=== PATIENT | female | born 1960 | race Caucasian/White ===

== ENCOUNTER → 2017-08-24 | Outpatient (CLI) | payer MEDICAID | LOC: FIMAGING 11:33 | PROVIDERS: ATTEND Internal Medicine Hematology & Oncology | DX: Z12.31 Encounter for screening mammogram for malignant neoplasm of breast (principal); Z85.3 Personal history of malignant neoplasm of breast; Z80.3 Family history of malignant neoplasm of breast ==

== ENCOUNTER 2018-04-07 08:53 | Inpatient (IN) | payer MEDICAID ==
--- NOTE | 2018-04-06 10:21 | GHP ---
[f rep st] PREOP HISTORY AND PHYSICAL ADMISSION DIAGNOSIS: Left renal mass. This is a 57-year-old lady who has presented on referral from Dr. Robbins and Dr. Kirkland for a left renal mass on CAT scan, and she has had examinations by multiple people, and she has a 2 cm lower pole exo phytic lesion. She has a strong family history of renal cell carcinoma and requested it be removed. She is aware of her options of therapy and elected to undergo this. Indication, complications, and risks outlined well and tried to answer all of her questions. PAST HISTORY: She has had hypercholesterolemia, renal cyst, renal mass on the left, and hematuria. PAST SURGERY: Appendectomy, breast surgery, carpal tunnel, knee and shoulder. MEDICATIONS: Supplements, levothyroxine. ALLERGIES: Augmentin and Cipro. FAMILY HISTORY: Heart disease, colon cancer, and brother with renal cancer. SOCIAL HISTORY: Current every day alcohol use. Unemployed. Nonsmoker. REVIEW OF SYSTEMS: Negative cardiac, respiratory, GI, and endocrine. PHYSICAL EXAMINATION: VITAL SIGNS: Stable. CHEST: Clear. HEART: Regular rate and rhythm. ABDOME N: Normal. No organomegaly, rebound, or guarding. EXTREMITIES: Lower extremities are normal. I have reviewed her CAT scan with her in detail, and at the present time, she is to undergo the left lower pole partial nephrectomy. Complications of bleeding, infection, and need for removal of the en tire kidney have been discussed. Written and verbal consent was obtained. She is admitted as [facility] ed. /[id number]/MODL
--- NOTE | 2018-04-07 07:30 | PDHPUP ---
History & Physical Update H&P update statement: This history and physical update is based on an assessment of the patient which was completed after admission or registration (within 24 hours), but prior to the surgery/procedure. H&P update: H&P reviewed & patient examined, no change in patient's condition since H&P completed
[2018-04-07] MEDS ORDERED: PROPOFOL/EMULSION 500 MG/50 ML BOTTLE IV ONE ×3 (09:06→12:58)
[2018-04-07] MEDS ORDERED: fentaNYL 250 MCG/5 ML INJ ONE (09:10)
[2018-04-07] MEDS ORDERED: ceFAZolin 2 GM/DEXTROSE 100 ML IV ONE (09:11)
[2018-04-07] MEDS ORDERED: LR 1,000 ML IV ONE (09:23)
[2018-04-07] MEDS ORDERED: MIDAZOLAM 2 MG/2 ML VIAL IVP ONE (09:46)
[2018-04-07] MEDS ORDERED: ALBUTEROL 3 ML DEYVIAL IH ONE (09:47)
--- NOTE | 2018-04-07 09:51 | PDANEPAE ---
ANE History of Present Illness 57 year old female for Left partial nephrectomy. History of asthma. ANE Past Medical History - Cardiovascular History Hx Hypertension: No Hx Arrhythmias: No Hx Chest Pain: No Hx Coronary Artery / Peripheral Vascular Disease: No Hx CHF / Valvular Disease: No Hx Palpitations: No Cardiovascular History Comment: HEART RACES WITH ANXIETY ATTACKS - Pulmonary History Hx COPD: No Hx Asthma/Reactive Airway Disease: Yes Hx Recent Upper Respiratory Infection: No Hx Oxygen in Use at Home: No Hx Sleep Apnea: No Sleep Apnea Screening Result - Last Documented: Positive Pulmonary History Comment: ASTHMA W/CHRONIC COUGH - TRIGGERED BY ANXIETY. INHALERS - NOT USED SINCE WINTER. POS RUSTY TRIGGERS - Neurologic History Hx Cerebrovascular Accident: No Hx Seizures: No Hx Dementia: No Neurologic History Comment: OCCAS H/As FROM HIGH ALTITUDE AND LACK OF SLEEP - Endocrine History Endocrine History Comment: HYPOACTIVE THYROID - Renal History Hx Renal Disorders: Yes Renal History Comment: L KIDNEY MASS - Liver History Hx Hepatic Disorders: No - Neurological & Psychiatric Hx Hx Neurological and Psychiatric Disorders: Yes Neurological / Psychiatric History Comment: ANXIETY - Cancer History Hx Cancer: No Cancer History Comment: BREAST CA - Congenital Disorder History Hx Congenital Disorders: No - GI History Hx Gastrointestinal Disorders: Yes Gastrointestinal History Comment: ACID REFLUX. R ABD PAIN - Other Health History Other Health History: SKIN RASH W/YELLOWING SKIN & BLISTERING - NO DX - WORSE IN WINTER - USES UREA CREAM - Chronic Pain History Chronic Pain: Yes (NEAR R HIP BONE) - Surgical History Prior Surgeries: ENDOSCOPY. CARPAL TUNNEL RAUL. LUMPECTOMY R. SHOULDER SCOPES RAUL. RAUL KNEES REPAIR. APPENDECTOMY ANE Review of Systems Review of systems is: negative Review of Systems: - Exercise capacity METS (RN): 4 METS ANE Patient History - Allergies Allergies/Adverse Reactions: wheat Allergy (Intermediate, Verified 09/08/12 13:27) BLOATING adhesive Allergy (Verified 03/30/18 15:19) RASH, HIVES ciprofloxacin Allergy (Verified 09/08/12 13:27) Rash COWS MILK Allergy (Intermediate, Uncoded 09/08/12 13:27) BLOATING GARLIC Allergy (Intermediate, Uncoded 09/08/12 13:27) STOMACH PAIN ONIONS Allergy (Intermediate, Uncoded 09/08/12 13:27) BURPS MOLDS Allergy (Mild, Uncoded 09/08/12 13:27) COUGH - Home Medications Home Medications: traZODone [traZODONE 50MG (*)] 75 mg PO HS 06/11/11 [Last Taken 04/07/18 01:30] Levothyroxine [Synthroid 75 mcg (*)] 75 mcg PO DAILY06 03/29/18 [Last Taken 08:00] fluvoxaMINE MALEATE [Luvox 100 MG (*)] 100 mg PO DAILY 03/29/18 [Last Taken 07:30] Albuterol Hfa Anes Only 03/30/18 [Last Taken 09/22/17] Herbals/Supplements -Info Only 03/30/18 [Last Taken 04/05/18] - NPO status NPO Since - Liquids (Date): 04/07/18 NPO Since - Liquids (Time): 01:00 NPO Since - Solids (Date): 04/06/18 NPO Since - Solids (Time): 00:00 - Smoking Hx Smoking Status: Never smoked - Family Anes Hx Family Hx Anesthesia Complications: NEG ANE Labs/Vital Signs - Vital Signs Blood Pressure: 106/72 Heart Rate: 57 Respiratory Rate: 18 O2 Sat (%): 97 Height: 160.02 cm Weight: 54.431 kg ANE Physical Exam - Airway Neck exam: decreased ROM Mallampati Score: Class 2 Mouth exam: normal dental/mouth exam - Pulmonary Pulmonary: expiratory wheeze - Cardiovascular Cardiovascular: regular rate and rhythym - ASA Status ASA Status: II ANE Anesthesia Plan Anesthesia Plan: general endotracheal anesthesia (R upper temp crown. Treating with albuterol neb now for tx of exp wheezes.)
[2018-04-07] MEDS ORDERED: MANNITOL 20% 100 GM/500 ML BAG IV ONE (09:52)
[2018-04-07] MEDS ORDERED: BUPIVACAINE 0.5% 30 ML SDV ONE (09:52)
[2018-04-07] MEDS ORDERED: THROMBIN (BOVINE) 5,000 UNIT VIAL TP ONE (09:52)
[2018-04-07] MEDS ORDERED: THROMBIN(HUM PLAS)/FIBRINOG/CA 5 ML VIAL TP ONE (11:15)
[2018-04-07] MEDS ORDERED: LABETALOL HCL 5 MG/ML 20 ML MDV IVP PRN (11:19)
[2018-04-07] MEDS ORDERED: ALBUTEROL 3 ML DEYVIAL IH PRN (11:19)
[2018-04-07] MEDS ORDERED: NALOXONE HCL 0.4 MG/ML INJ IVP PRN ×2 (11:19→14:59)
[2018-04-07] MEDS ORDERED: LR 500 ML IV PRN (11:19)
[2018-04-07] MEDS ORDERED: PROMETHAZINE HCL 25 MG/ML INJ IVP PRN (11:25)
[2018-04-07] MEDS ORDERED: ONDANSETRON 4 MG/2 ML VIAL IVP PRN ×2 (11:25→14:59)
[2018-04-07] MEDS ORDERED: DEXAMETHASONE 4 MG/ML VIAL IVP PRN (11:25)
[2018-04-07] MEDS ORDERED: HYDROmorphONE/DILAUDID 2 MG/ML INJ ONE ×2 (11:28→15:17)
[2018-04-07] MEDS ORDERED: ROCURONIUM 50 MG/5 ML VIAL ONE ×2 (12:40→12:41)
[2018-04-07] MEDS ORDERED: DEXAMETHASONE 4 MG/ML VIAL ONE ×2 (12:40→12:41)
[2018-04-07] MEDS ORDERED: ONDANSETRON 4 MG/2 ML VIAL ONE (12:40)
[2018-04-07] MEDS ORDERED: ROCURONIUM 100 MG/10 ML VIAL ONE (12:41)
[2018-04-07] MEDS ORDERED: LABETALOL HCL 5 MG/ML 20 ML MDV ONE (12:41)
[2018-04-07] MEDS ORDERED: SURGIFLO MATRIX KIT WITH THROMBIN 8 ML TP ONE ×2 (13:30→13:53)
[2018-04-07] MEDS ORDERED: HYDROmorphONE/DILAUDID 6 MG/30 ML PCA IV PRN (14:59)
[2018-04-07] MEDS ORDERED: ONDANSETRON DISINTEGRATING 4 MG TAB PO PRN (14:59)
[2018-04-07] MEDS ORDERED: ZOLPIDEM TARTRATE 5 MG TAB PO PRN (14:59)
--- NOTE | 2018-04-07 14:59 | POSTOPPROG ---
Post Op Note Date of Operation: 04/07/18 (dictated) Surgeon: Louie Brian Mission Worker: Aditya Anesthesiologist: Samantha Anesthesia: GET(General Endotracheal) Pre-op Diagnosis: left renal mass Procedure: RA left partial neph Inf/Abcess present in the surg proc area at time of surgery?: No EBL: 500-1000 Complications: none Drains: Alejandro Rios, Other (cummins) Specimen(s): sent
[2018-04-07] MEDS ORDERED: ALBUTEROL 60 PUFFS/8 GM MDI IH PRN (15:11)
[2018-04-07] MEDS ORDERED: fentaNYL 100 MCG/2 ML INJ ONE ×2 (15:17→15:48)
[2018-04-07] MEDS: HYDROmorphONE/DILAUDID 1 MG/ML INJ IVP PRN ×3 (15:21→15:53)
[2018-04-07] MEDS: fentaNYL 100 MCG/2 ML INJ IVP PRN ×3 (15:21→16:00)
[2018-04-07 15:43] LABS: PLATELET COUNT 187 10^3/uL (150-400)
--- NOTE | 2018-04-07 15:54 | GOP ---
[f rep st] OPERATIVE REPORT DATE OF OPERATION: 04/07/2018 SURGEON: Louie Brian MD SPRAY GUN REPAIRER: Aditya. ANESTHESIA: General. Dr. Singh PREOPERATIVE DIAGNOSIS: Left solid renal mass, enhancing. POSTOPERATIVE DIAGNOSIS: Left solid renal mass, enhancing. PROCEDURE PERFORMED: Left partial nephrectomy, robotically assisted. FINDINGS: SPECIMENS: Sent to pathology. DESCRIPTION OF PROCEDURE: After undergoing general anesthesia and answering all of her questions preoperatively, she was prepped and draped in normal sterile fashion after being marked and appropriately identified on the left side. Then, at that point, she was prepped and draped and then had Ioban placed over the abdominal wall, and then an infraumbilical approach was made for the Veress needle which was placed and insufflated the abdomen to 15 mmHg pressure. Then, at that point, a 12-Congolese camera port was placed at the umbilicus and two 8 mm robot arm ports were placed in the midclavicular line on the left side and then the medical library assistant port was placed infraumbilically in the midline for a 12 mm port. Initially placing the lowest medical library assistant port, there was a hemorrhage coming from the muscle and so we removed the port and identified a small muscular artery that was bleeding and that was cauterized and then the port was re-placed and insufflation revealed no intestinal staining inside the abdomen. The spleen came way down past the lower pole of the kidney. At that point, the colon was mobilized on the left side. We had instrumentation difficulty with the bipolar on multiple attempts to changing the device, the cord, and the instrument would not work, so then we utilized PK forceps that worked intermittently, but felt that they were functioning and was providing hemostasis with dissection, so identified the ureter and dissected that up to the lower pole of the kidney. She had a large gonadal vein that was dilated and was restricting the exposure of the renal hilum and at that point, I re-hemo locked the renal vein branch which was gonadal, 2 on the renal vein side, and 1 on the gonadal side and was transected. Ironically scissors for some reason were not cutting. New scissors were placed and the dissection was continued and I could identify the renal vein had 2 branches, 1 going posterior , 1 anterior, tried to initially dissected these out, see if I could find the renal artery, which actually bifurcated proximal to the bifurcation of the renal vein and the gonadal vessels. So dissection was carried out to mobilize the entire kidney and had to take down the splenorenal ligament and colorenal ligaments down so I could actually get the spleen and the colon totally out of the way so I could visualize the operative site. At that point, I could identify the mass in the kidney. She had minimal fat around the kidney through that dissection, so the ureter was preserved and the kidney was totally mobilized. We had mannitol given IV and then was able to try to clamp the artery and vein separately, but with the anatomy that she had, it was not possible, so I placed 2 large vascular clamps robotically along the hilum and the renal vein and renal artery. She had 1 renal artery going to the upper pole of left kidney and that was clamped with a curved clamp. The kidney had no apparent blood flow. It had a dark appearance and a congested appearance. At that point, I had previously marked the outline where the tumor would be resected and had ultrasound guidance showed that it was 2.1 x 1.8 cm. Then I excised the lesions and she had some venous bleeding. No arterial bleeding identified. Originally, I asked for a 4-0 Monocryl to close the inner part of the vessels and collecting system, but there was a delay on suture based on needle size so that had to be redone, in the interim of that, the kidney had some venous bleeding that I could eventually use a 4-0 Monocryl and closed the inside of the kidney with a running stitch and had a Hem-o-karely and laprotie mobilized at the tail and then as I brought it through and then brought out through the capsule and then stabilized in a similar way. At that point, I used 0 Vicryl to do a serpentine closure and interrupted and using pledget Hem-o -karely to compress the nephrotomy. I did 2 layers of that. Of interest, as I was closing, I did open 1 renal vein and was able to tamponade that quite well. So, bleeding was minimal at the end of the closure. Used FloSeal and Surgicel over the nephrotomy closure and then took off the clamps sequentially and there was no bleeding. The kidney pinked up and had good turgor on palpation with the robot arm. Placed a BERYL drain retrorenal. I did a nephropexy with 0 Vicryl and then the ureter was intact. There was no bleeding at the hilum. I did place FloSeal around the hilum with some Evicel. The specimen was placed in a bag, and then at that point, decreased the pressure to zero in the abdomen and there was no bleeding. We undocked the robot after opening the camera port, removed the specimen in a specimen bag. We closed that with a suture closure device, 0 Vicryl, and then she had some old blood that was coming out of the drain, so we placed two 8 mm ports in and revisualized intra-abdominally. During the bleeding, she had some dependent blood going into the right pericolic area and that was all sucked out and there was no active bleeding there. There was no staining in the abdomen. Revisualized the renal hilum and nephrotomy site and there was no active bleeding there. There was a small amount of blood above the right lobe of the liver that was aspirated. At the end of the procedure with no pressure felt, there was no active bleeding and there was no pulling. Then the medical library assistant port was closed with an 0 Vicryl. Subcutaneous tissue was hemostatic and closed the skin with 4-0 Monocryl and Marcaine was used for closing the skin edges. Vital signs stable per Anesthesia and there were no anesthetic problems. At the end of the procedure, she has minimal drainage coming from the BERYL site and should be transferred to the recovery room. I will discuss with her findings and pathology sent. At the end of the procedure, grossly there was no suggestion of tumor at the base of the lesion and it felt like the lesion had normal-appearing tissue. We did not cut across any tumor site at the at the renal dissection. /[id number]/MODL MTDD
--- NOTE | 2018-04-07 16:05 | POSTANESTH ---
Post Anesthetic Evaluation Cardiovascular Status: Normal, Stable Respiratory Status: Normal, Stable Level of Consciousness/Mental Status: Mildly Sleepy, Arousable Pain Control: Adequate, Prn Tx Ordered Nausea/Vomiting Control: Adequate, Prn Tx Ordered Complications Possibly Related to Anesthesia: None Noted
[2018-04-07] MEDS: D5W 1/2 NS W/ 20 KCl/L 1,000 ML IV SCH (18:23)
[2018-04-07] MEDS: traZODone 50 MG TAB PO SCH (20:01)
[2018-04-07] MEDS: oxyCODONE IR 5 MG TAB PO PRN (20:01)
--- NOTE | 2018-04-07 21:53 | PDHOSCONS ---
History and Physical - Chief Complaint blood loss - History of Present Illness 57yo F with history of asthma, depression, hypothyroidism who underwent L partial nephrectomy for mass seen on CT by Dr Brian of urology. Procedure complicated by bleeding. Operative report indicates likely nicked renal vein. BERYL drain was left in place. Medicine was consulted for management of medical problems and to assess bleeding. On my interview with the patient, she is having mild left sided abdominal/flank pain near incision site but denies nausea or vomiting. She also endorses chronic RLQ abdominal pain that has not acutely worsened. History Information - Allergies/Home Medication List Allergies/Adverse Reactions: wheat Allergy (Intermediate, Verified 09/08/12 13:27) BLOATING adhesive Allergy (Verified 03/30/18 15:19) RASH, HIVES ciprofloxacin Allergy (Verified 09/08/12 13:27) Rash COWS MILK Allergy (Intermediate, Uncoded 09/08/12 13:27) BLOATING GARLIC Allergy (Intermediate, Uncoded 09/08/12 13:27) STOMACH PAIN ONIONS Allergy (Intermediate, Uncoded 09/08/12 13:27) BURPS MOLDS Allergy (Mild, Uncoded 09/08/12 13:27) COUGH Home Medications: traZODone [traZODONE 50MG (*)] 75 mg PO HS 06/11/11 [Last Taken 04/07/18 01:30] Levothyroxine [Synthroid 75 mcg (*)] 75 mcg PO DAILY06 03/29/18 [Last Taken 08:00] fluvoxaMINE MALEATE [Luvox 100 MG (*)] 100 mg PO DAILY 03/29/18 [Last Taken 07:30] Albuterol [Proventil Inhaler HFA (*)] 1 - 2 puffs IH DAILY PRN 03/30/18 [Last Taken Unknown] Herbals/Supplements -Info Only 1 ea PO DAILY 03/30/18 [Last Taken 04/05/18] Multivitamins [Multivitamin (*)] 1 each PO DAILY 04/07/18 [Last Taken Unknown] Col[place]idge-3 Fatty Acids [Fish Oil 1000 mg (*)] 1,000 mg PO DAILY 04/07/18 [Last Taken Unknown] I have personally reviewed and updated: family history, medical history, social history, surgical history - Past Medical History Additional medical history: hypothyroidism, asthma, depression, L renal mass - Surgical History Additional surgical history: appendectomy, breast surgery, carpal tunnel release , knee and shoulder surgeries - Family History Additional family history: brother - renal cancer, other family members with heart disease and colon cancer - Social History Smoking Status: Never smoked Alcohol Use: Occasionally Drug Use: None Additional social history: lives with Review of Systems Review of Systems: ROS: 10pt was reviewed & negative except for what was stated in HPI & below Physical Exam Physical Exam: Temp Pulse Resp BP Pulse Ox 36.4 C 67 16 99/56 L 100 04/07/18 20:00 04/07/18 20:00 04/07/18 20:00 04/07/18 20:00 04/07/18 20:00 O2 (L/minute) 2 Constitutional: no apparent distress, appears nourished, not in pain Eyes: PERRL, anicteric sclera, EOMI Ears, Nose, Mouth, Throat: moist mucous membranes, hearing normal, ears appear normal, no oral mucosal ulcers Cardiovascular: regular rate and rhythym, no murmur, rub, or gallop, No edema Respiratory: no respiratory distress, no rales or rhonchi, clear to auscultation Gastrointestinal: soft, non-tender abdomen, no palpable masses, other (BERYL drain with bloody fluid), No guarding, No rebound, No distension Skin: warm, normal color, no rashes or abrasions, no fluctuance, no induration, No mottled Neurologic: AAOx3, sensation intact bilaterally, CN II-XII Intact Psychiatric: interacting appropriately, not anxious, not encephalopathic, thought process linear Lab Data & Imaging Review 04/07/18 20:00 WBC 10.85 10^3/uL (3.80-9.50) H 04/07/18 15:35 RBC 3.30 10^6/uL (4.18-5.33) L 04/07/18 15:35 Hgb 10.4 g/dL (12.6-16.3) L 04/07/18 20:00 Hct 29.7 % (38.0-47.0) L 04/07/18 20:00 MCV 98.2 fL (81.5-99.8) 04/07/18 15:35 MCH 33.6 pg (27.9-34.1) 04/07/18 15:35 MCHC 34.3 g/dL (32.4-36.7) 04/07/18 15:35 RDW 11.7 % (11.5-15.2) 04/07/18 15:35 Plt Count 187 10^3/uL (150-400) 04/07/18 15:35 MPV 8.6 fL (8.7-11.7) L 04/07/18 15:35 Neut % (Auto) 93.4 % (39.3-74.2) H 04/07/18 15:35 Lymph % (Auto) 4.3 % (15.0-45.0) L 04/07/18 15:35 [place] % (Auto) 1.5 % (4.5-13.0) L 04/07/18 15:35 Eos % (Auto) 0.0 % (0.6-7.6) L 04/07/18 15:35 Baso % (Auto) 0.2 % (0.3-1.7) L 04/07/18 15:35 Nucleat RBC Rel Count 0.0 % (0.0-0.2) 04/07/18 15:35 Absolute Neuts (auto) 10.13 10^3/uL (1.70-6.50) H 04/07/18 15:35 Absolute Lymphs (auto) 0.47 10^3/uL (1.00-3.00) L 04/07/18 15:35 Absolute Monos (auto) 0.16 10^3/uL (0.30-0.80) L 04/07/18 15:35 Absolute Eos (auto) 0.00 10^3/uL (0.03-0.40) L 04/07/18 15:35 Absolute Basos (auto) 0.02 10^3/uL (0.02-0.10) 04/07/18 15:35 Absolute Nucleated RBC 0.00 10^3/uL (0-0.01) 04/07/18 15:35 Immature Gran % 0.6 % (0.0-1.1) 04/07/18 15:35 Immature Gran # 0.07 10^3/uL (0.00-0.10) 04/07/18 15:35 RBC/WBC/PLT Morphology TNP 04/07/18 15:35 Platelet Estimate TNP 04/07/18 15:35 Patient ABO/Rh A POSITIVE 04/07/18 17:35 Antibody Screen NEGATIVE 04/07/18 17:35 Crossmatch IS Only See Detail 04/07/18 17:35 Assessment & Plan Assessment: 57yo F with history of asthma, depression, hypothyroidism who underwent L partial nephrectomy for mass seen on CT by Dr Brian of urology. Procedure complicated by bleeding. Operative report indicates likely nicked renal vein. BERYL drain was left in place. Medicine was consulted for management of medical problems. Plan: #Acute blood loss anemia: Hgb 14->11. Operative note indicates nicked renal vein which is likely culprit. BERYL drain in place. - At least daily CBC - Type and crossed for 2 units PRBCs - Monitor hemodynamics, abdominal exam. If worsening, would re-scan abdomen - Dr Brian was going to discuss with general surgery #Asthma: Controlled, no acute flare. Continue home albuterol. #Hypothyroidism: Continue home synthroid. #s/p left partial nephrectomy: POD#0 - Pain control per urology #Depression, anxiety: Continue home fluvoxemine. Thank you for this consult. We will continue to follow along with you.
[2018-04-08] MEDS: D5W 1/2 NS W/ 20 KCl/L 1,000 ML IV SCH (02:02)
[2018-04-08] MEDS: oxyCODONE IR 5 MG TAB PO PRN (02:25)
[2018-04-08 02:37] LABS: PLATELET COUNT 171 10^3/uL (150-400)
[2018-04-08] MEDS ORDERED: LEVOTHYROXINE 75 MCG TAB PO SCH (06:00)
[2018-04-08] MEDS: LEVOTHYROXINE 75 MCG TAB PO SCH (08:59)
--- NOTE | 2018-04-08 09:54 | SOAPPROG ---
SOAP Progress Note Assessment/Plan: Assessment: Postoperative anemia due to acute blood loss Acute BERYL less, pain minimal, vss, continue care, may tx later today if hct lower, appreciate hospitalist input and assistance in care. discussed if need reop then nephrectomy would be done and in light of pt stability cont present care plan Renal mass, left Acute Stable, BMP ok other than glucose elevation yet creat is normal. Path pending Plan: continue care, check H and H and if drops more consider tx blood 04/08/18 09:54 Objective: Vital Signs Temp Pulse Resp BP Pulse Ox 37.7 C 74 21 H 97/47 L 100 04/08/18 07:57 04/08/18 07:57 04/08/18 07:57 04/08/18 07:57 04/08/18 07:57 Laboratory Results 04/08/18 06:15 04/08/18 02:00 04/07/18 04/08/18 04/09/18 05:59 05:59 05:59 Intake Total 5146 Output Total 2945 35 Balance 2201 -35 Physical Exam - Physical Exam General Appearance: alert Neck: supple Respiratory: normal breath sounds, No respiratory distress Cardiac/Chest: regular rate, rhythm Abdomen: non-tender, soft Back: No CVA tenderness Neuro/Psych: alert, oriented x 3 ICD10 Worksheet Patient Problems: Problems Problem Status Onset Postoperative anemia due to acute blood loss Acute Renal mass, left Acute - ICD10 Problem Qualifiers (1) Postoperative anemia due to acute blood loss
--- NOTE | 2018-04-08 14:08 | ASMTCMCOM ---
CM Note CM Note Notes: Pt with history of hypothyroidism, asthma and depression admitted for partial nephrectomy of mass, complicated by internal bleeding. Pt may receive blood transfusion or return to surgery which would then result in nephrostomy possibly requiring home health RN. Pt lives at home with . Therapies are not ordered. CM needs still TBD. D/C plan: TBD Date Signed: 04/08/2018 02:07 PM Electronically Signed By:Erica Pardo
--- NOTE | 2018-04-08 14:20 | PDMN ---
Medical Necessity Medical necessity: Pt meets IP per MD; est los >2 mn for eval/tx of acute blood loss anemia s/p L partial nephrectomy POD #0; requiring further SDU monitoring, IVFs, blood transfusion, follow-up labs & Hospitalist consult; per progress note & order 04/07/18
[2018-04-08] MEDS: ACETAMINOPHEN 325 MG TAB PO PRN (15:37)
--- NOTE | 2018-04-08 16:38 | HOSPPROG ---
Hospitalist Progress Note Assessment/Plan: Subjective Follow-up on acute blood loss anemia. Patient states she is having pain around her surgical site the current ARMHOLE SEWER pump has been helpful with control. She denies any subjective fevers or chills. No complaints of productive cough. No complaints of lightheadedness. Objective Vital signs as detailed below Exam General-patient is awake alert conversant she appears comfortable no acute distress she is able to provide good amount of history Heart-regular no murmurs noted Lungs-clear auscultation anteriorly with normal respiratory effort Abdomen-nondistended tender with palpation at the left upper quadrant and without significant tenderness of the right abdomen surgical sites appear to be healing appropriately -[place] catheter in place with clear yellow urine Skin no concerning skin rashes noted Labs as detailed below Assessment plan Acute blood loss anemia-this appears to be stabilizing with her hemoglobin going from 8.9 yesterday 0.3 today. This was 11 previously. Left renal mass-patient is status post partial left nephrectomy. Fever-patient has had elevated temperatures throughout the day today. No definite new symptoms to localize an infectious source. Possibly secondary to atelectasis in light of her surgery. I will further evaluate with blood cultures urinalysis and chest x-ray. Will start ceftriaxone for now. Fleet pending results in further investigation. [id number] albuterol. Hypothyroidism-levothyroxine 75 mcg daily. Depression-continue fluvoxamine 100 mg daily. DVT prophylaxis-compression devices. Disposition-I would anticipate patient would be stable for discharge home once medically stable. We may want to involve PT and OT when cleared from bedrest. Objective: Vital Signs Temp Pulse Resp BP Pulse Ox 37.9 C 73 13 93/52 L 97 04/08/18 15:41 04/08/18 15:41 04/08/18 15:41 04/08/18 15:41 04/08/18 15:41 Laboratory Results 04/08/18 02:00 04/07/18 04/08/18 04/09/18 05:59 05:59 05:59 Intake Total 0086 Output Total 2945 120 Balance 2201 -120 ICD10 Worksheet Patient Problems: Problems Problem Status Onset Postoperative anemia due to acute blood loss Acute Renal mass, left Acute
[2018-04-08] MEDS: NS 1,000 ML IV SCH (17:26)
[2018-04-08] MEDS: traZODone 50 MG TAB PO SCH (22:41)
[2018-04-09] MEDS: NS 1,000 ML IV SCH (00:05)
[2018-04-09 04:52] LABS: PLATELET COUNT 123 10^3/uL (150-400)
--- NOTE | 2018-04-09 05:55 | GCON ---
[f rep st] CONSULTATION DATE OF CONSULTATION: 04/08/2018 REASON FOR CONSULTATION: Intensive care unit evaluation and medical management following partial kid jerod resection. HISTORY: The patient is a very pleasant 58-year-old who underwent partial left nephrectomy yesterday for a mass. Postoperatively, the patient had some bleeding and increased drainage. Dr. Brian felt this was coming from a renal vein, not arterial. She was transferred to the intensive care unit for closer followup. She has had some left-sided flank pain as expected, nothing excessive. She is othe rwise doing well. PAST MEDICAL HISTORY: Remarkable for hypothyroidism, depression, and asthma. HOME MEDICATIONS: Included only albuterol, Luvox, trazodone, and Synthroid along with vitamins and s upplements. DRUG ALLERGIES: Multiple. These include ciprofloxacin, adhesive tapes, and various food issues. SOCIAL HISTORY: The patient was born in [facility]. Tobacco is negative. Significant alcohol is negati ve. 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 FAMILY HISTORY: Noncontributory. REVIEW OF SYSTEMS: A 10-point review of systems is negative except as mentioned above. PHYSICAL EXAMINATION: GENERAL: Reveals a pleasant woman, who is in no distress. VITAL SIGNS: Bloo d pressure is approximately 95/50, heart rate 73 with sinus rhythm on the monitor. Respiratory rate is 14. On room air saturations are in the upper 90s. She is afebrile. HEENT: Unremarkable for lym phadenopathy or thyromegaly. CHEST: Clear. There are no wheezes. HEART: Regular in rate and rhyt hm. There are no gallops or significant murmurs. ABDOMEN: Quiet postoperatively. Palpation was no t attempted. A Toledo catheter is in place. There is good urine output. A Alejandro-Rios drain is in place with decreasing bloody output. EXTREMITIES: Unremarkable for edema or cords. NEUROLOGIC: E xamination is intact. DATABASE: Hematocrit is 24.7, down from 32 earlier today. Baseline hematocrit preoperatively was 41 . White blood cell count is 7600. Platelets are 171,000. Chemistries are within normal limits with the exception of a glucose of 170. Calcium is 7.9. Urinalysis today showed some blood but was othe rwise negative. ASSESSMENT: 1. Acute blood loss anemia. Currently, hematocrit is stable at approximately 25. Serial hemoglobin and hematocrit are being followed. Bleeding is slowing down. Hopefully she will not need to return to the operating room for further intervention as nephrectomy possibly would be needed. 2. History of asthma. There is no evidence of bronchospasm currently. She has p.r.n. albuterol if needed. 3. History of other medical problems as outlined above. Outpatient medications are being continued. PLAN AND RECOMMENDATIONS: The patient will be kept in the intensive care unit on step-down status. H and H/CBC will be followed. Further plans and recommendations will be made based on her progress over the next 12-24 hours. /[id number]/MODL
[2018-04-09] MEDS: LEVOTHYROXINE 75 MCG TAB PO SCH (08:45)
--- NOTE | 2018-04-09 09:52 | SOAPPROG ---
SOAP Progress Note Assessment/Plan: Assessment: Postoperative anemia due to acute blood loss Acute POD $ 2 BERYL less , pain minimal, vss, continue care, may tx later today if hct lower, appreciate hospitalist input and assistance in care. discussed if need reop then nephrectomy would be done and in light of pt stability cont present care plan. Discussed with Dr. Robbins and pt admits to large ETOH consumption, portal HTN may have some contributing factor for bleeding. Post op abdominal spasms and robaxan planned. Renal mass, left Acute Stable, BMP ok other than glucose elevation yet creat is normal. Path pending Plan: continue care,Lower H and H consider tx blood 04/09/18 10:21 Subjective: ok, pain discussed, discussed recommendation for transfusion and she prefers to wait, will assess after the 2PM H and H, I have encouraged her to have tx Objective: Vital Signs Temp Pulse Resp BP Pulse Ox 37.3 C 70 15 94/51 L 99 04/09/18 07:45 04/09/18 07:45 04/09/18 07:45 04/09/18 07:45 04/09/18 07:45 Laboratory Results 04/09/18 04:45 04/09/18 04:45 04/08/18 04/09/18 04/10/18 05:59 05:59 05:59 Intake Total 6899 6639 Output Total 3895 324 25 Balance 2201 -107 -25 ICD10 Worksheet Patient Problems: Problems Problem Status Onset Postoperative anemia due to acute blood loss Acute Renal mass, left Acute - ICD10 Problem Qualifiers (1) Postoperative anemia due to acute blood loss
--- NOTE | 2018-04-09 09:52 | PDINTPN ---
Truss Driver Helper Progress Note Assessment/Plan: Assessment: Status post left partial nephrectomy. Acute blood-loss anemia. Hematocrit drifting down: 22.5 this morning. Will transfuse 1 unit. History of mild asthma, anxiety, depression. Stable Metabolic: No issues identified. Prophylaxis: SCDs, no GI. Will add the latter while npo. Plan: 1 unit of packed red blood cells today. Follow H&H. Continue DENTAL CHAIRSIDE ASSISTANT for pain control. Advance diet per Urology. Continue bed rest for now. Subjective: Complains of postoperative flank pain and spasm. On DENTAL CHAIRSIDE ASSISTANT. No shortness of breath. Objective: Vital Signs Temp Pulse Resp BP Pulse Ox 37.3 C 70 15 94/51 L 99 04/09/18 07:45 04/09/18 07:45 04/09/18 07:45 04/09/18 07:45 04/09/18 07:45 Laboratory Results 04/09/18 04:45 04/09/18 04:45 04/08/18 04/09/18 04/10/18 05:59 05:59 05:59 Intake Total 5146 3133 Output Total 2945 3240 25 Balance 2201 -107 -25 Laboratory Tests 04/09/18 04:45 Calcium 7.4 L Total Bilirubin 0.3 AST 35 ALT 34 Albumin 2.3 L CXR: Clear Physical Exam - Physical Exam General Appearance: alert, no apparent distress EENT: other (On room air) Neck: normal inspection (No JVD) Respiratory: lungs clear, normal breath sounds Cardiac/Chest: regular rate, rhythm, No gallop Abdomen: soft, other (BERYL in place. Decreased output overnight: 25 mL), No normal bowel sounds (Decreased, few present), No non-tender (Postoperative tenderness on the L) Pelvic Exam: other (Toledo catheter in place, good urine output) Skin: warm/dry, pallor Extremities: pedal edema Neuro/Psych: no motor/sensory deficits, No cognition abnormalities ICD10 Worksheet Patient Problems: Problems Problem Status Onset Postoperative anemia due to acute blood loss Acute Renal mass, left Acute
[2018-04-09] MEDS: PANTOPRAZOLE SODIUM 40 MG VIAL IVP SCH (11:59)
[2018-04-09] MEDS: METHOCARBAMOL 1,000 MG in NS 50 ML IV SCH ×2 (14:18→21:49)
--- NOTE | 2018-04-09 16:53 | HOSPPROG ---
Hospitalist Progress Note Assessment/Plan: Subjective Follow-up on acute blood loss anemia. No acute events overnight. She does subjectively feel warm today. We reviewed that she was having fevers we have not found any obvious source of infection. Possibly related to intra-abdominal hematoma. No lightheadedness complaints. Objective Vitals as detailed below Exam General-awake alert conversant no acute distress Heart-regular rate and rhythm no murmurs Lungs-Clear to auscultation with normal respiratory effort Abdomen-nondistended BERYL drain in place on the left with blood in bowl drain overlying gauze is blood-soaked as well - Toledo catheter in place Extremities-no significant pitting edema or calf pain with palpation Skin-no concerning skin rashes noted Labs as detailed below Assessment plan Acute blood loss anemia-her hemoglobin did drop today to 7.7 but a repeat has come up slightly to 8.1. I think we can continue to follow for now and recheck again tomorrow morning. The the patient's preference would be to not have a blood transfusion unless absolutely necessary. Left renal mass-patient is status post partial left nephrectomy. Fever-patient has had elevated temperatures throughout the day today. No definite new symptoms to localize an infectious source. Possibly secondary to atelectasis in light of her surgery. Possibly related to intra-abdominal hematoma. Chest x-ray and urinalysis unremarkable. Blood cultures pending. Continue with ceftriaxone for now but likely could stop if blood cultures negative. Gqyrni-ue-cvjvld albuterol. Hypothyroidism-levothyroxine 75 mcg daily. Depression-continue fluvoxamine 100 mg daily. DVT prophylaxis-compression devices. Disposition-I would anticipate patient would be stable for discharge home once medically stable. We may want to involve PT and OT when cleared from bedrest. Objective: Vital Signs Temp Pulse Resp BP Pulse Ox 37.3 C 70 16 108/55 L 93 04/09/18 16:00 04/09/18 07:45 04/09/18 16:00 04/09/18 16:00 04/09/18 16:00 Laboratory Results 04/09/18 14:20 04/09/18 04:45 04/08/18 04/09/18 04/10/18 05:59 05:59 05:59 Intake Total 5146 3133 Output Total 0985 3240 65 Balance 2201 -107 -65 ICD10 Worksheet Patient Problems: Problems Problem Status Onset Postoperative anemia due to acute blood loss Acute Renal mass, left Acute
[2018-04-09] MEDS: ACETAMINOPHEN 325 MG TAB PO PRN (19:28)
[2018-04-09] MEDS: oxyCODONE IR 5 MG TAB PO PRN (19:40)
[2018-04-09] MEDS: traZODone 50 MG TAB PO SCH (21:46)
[2018-04-10] MEDS: oxyCODONE IR 5 MG TAB PO PRN ×3 (00:13→21:16)
[2018-04-10 05:36] LABS: PLATELET COUNT 128 10^3/uL (150-400)
[2018-04-10] MEDS: METHOCARBAMOL 1,000 MG in NS 50 ML IV SCH ×3 (06:35→21:17)
[2018-04-10] MEDS: PANTOPRAZOLE SODIUM 40 MG VIAL IVP SCH (07:53)
[2018-04-10] MEDS: LEVOTHYROXINE 75 MCG TAB PO SCH (07:53)
[2018-04-10] MEDS ORDERED: MAGNESIUM CITRATE 300 ML BOTTLE PO PRN (09:15)
[2018-04-10] MEDS: POLYETHYLENE GLYCOL 3350 17 GM PKT PO SCH (09:30)
--- NOTE | 2018-04-10 10:36 | SOAPPROG ---
SOAP Progress Note Assessment/Plan: Assessment: Postoperative anemia due to acute blood loss Acute POD # 3 BERYL less , pain minimal, vss, continue care, Discussed with Dr. Robbins and pt admits to large ETOH consumption, portal HTN may have some contributing factor for bleeding. Post op abdominal spasms and robaxan has helped spasms. BERYL drainage for creat and continue care, advance diet, advance activity Renal mass, left Acute Stable, BMP ok, creat is normal. Path pending Plan: continue care,Lower H and H consider tx blood yet stable and good UO 04/10/18 11:50 Subjective: better, passing flatus, Robaxan helped spasms, pain fairly well controlled Objective: Vital Signs Temp Pulse Resp BP Pulse Ox 37.1 C 73 14 102/52 L 95 04/10/18 07:39 04/10/18 07:39 04/10/18 07:39 04/10/18 07:39 04/10/18 07:39 Laboratory Results 04/10/18 05:27 04/10/18 05:27 04/09/18 04/10/18 04/11/18 05:59 05:59 05:59 Intake Total 3133 1907 Output Total 3240 2014 200 Balance -107 -108 -465 Physical Exam - Physical Exam General Appearance: alert Neck: supple Respiratory: No respiratory distress Cardiac/Chest: regular rate, rhythm Abdomen: soft, other (drain discussed) Back: No CVA tenderness Skin: warm/dry Extremities: No calf tenderness, No Tammy's sign Neuro/Psych: alert, oriented x 3 ICD10 Worksheet Patient Problems: Problems Problem Status Onset Postoperative anemia due to acute blood loss Acute Renal mass, left Acute - ICD10 Problem Qualifiers (1) Postoperative anemia due to acute blood loss
[2018-04-10] MEDS: ACETAMINOPHEN 325 MG TAB PO PRN (13:00)
--- NOTE | 2018-04-10 16:45 | HOSPPROG ---
Hospitalist Progress Note Assessment/Plan: Subjective Follow-up on acute blood loss anemia. No acute events overnight. She is not complaining of feeling warm today as yesterday. We did discuss that her hemoglobin level has leveled off. Blood transfusion was consider yesterday however patient was declining a transfusion of blood. Stable pain complaints. No lightheadedness or shortness of breath. Objective Vitals as detailed below Exam General-awake alert conversant no acute distress Heart-regular rate and rhythm no murmurs Lungs-Clear to auscultation with normal respiratory effort Abdomen-nondistended BERYL drain in place with the smaller amount of thin bloody discharge overlying gauze is not as much blood soaked as yesterday -no Toledo catheter in place Extremities-no significant pitting edema or calf pain with palpation Skin-no concerning skin rashes noted Labs as detailed below Assessment plan Acute blood loss anemia-her hemoglobin seems to be leveling off and clinically with less blood in her BERYL drain. Continue to follow and recheck again tomorrow morning. Left renal mass-stat patient is status post partial left nephrectomy. Fever-the seemed to have abated. No obvious source identified. Possibly secondary to atelectasis or hematoma. Await final blood culture results. Will continue with the ceftriaxone for now but likely could stop if no recurrent fevers and ongoing clinical stability. Constipation-continue bowel regimen. Tewqwp-tq-pnonlz albuterol. Hypothyroidism-levothyroxine 75 mcg daily. Depression-continue fluvoxamine 100 mg daily. DVT prophylaxis-compression devices. Disposition-I would anticipate patient would be stable for discharge home once medically stable. We may want to involve PT and OT when cleared from bedrest. Objective: Vital Signs Temp Pulse Resp BP Pulse Ox 36.6 C 65 16 97/55 L 91 L 04/10/18 15:43 04/10/18 15:43 04/10/18 15:43 04/10/18 15:43 04/10/18 15:43 Laboratory Results 04/10/18 05:27 04/10/18 05:27 04/09/18 04/10/18 04/11/18 05:59 05:59 05:59 Intake Total 1499 8503 Output Total 0161 2014 Balance -107 -108 -303 ICD10 Worksheet Patient Problems: Problems Problem Status Onset Postoperative anemia due to acute blood loss Acute Renal mass, left Acute
[2018-04-10] MEDS: SENNOSIDES 1 TAB PO SCH (21:03)
[2018-04-10] MEDS: traZODone 50 MG TAB PO SCH (21:03)
[2018-04-11] MEDS: oxyCODONE IR 5 MG TAB PO PRN ×2 (03:35→21:40)
[2018-04-11] MEDS: ACETAMINOPHEN 325 MG TAB PO PRN (05:00)
[2018-04-11] MEDS: METHOCARBAMOL 1,000 MG in NS 50 ML IV SCH (06:00)
[2018-04-11] MEDS: LEVOTHYROXINE 75 MCG TAB PO SCH (09:34)
[2018-04-11] MEDS: PANTOPRAZOLE SODIUM 40 MG VIAL IVP SCH (09:34)
[2018-04-11] MEDS: POLYETHYLENE GLYCOL 3350 17 GM PKT PO SCH (09:44)
--- NOTE | 2018-04-11 11:22 | ASMTCMCOM ---
CM Note CM Note Notes: Reviewed chart notes. Pt impoving and IV ABX may be DC'd. CM will continue to follow for DC needs. Date Signed: 04/11/2018 11:21 AM Electronically Signed By:Jessica Campoverde LCSW
--- NOTE | 2018-04-11 12:47 | SOAPPROG ---
SOAP Progress Note Assessment/Plan: Assessment: Postoperative anemia due to acute blood loss Acute POD # 4 BERYL less and serum, will have removed (BERYL drainage for creat 0.8) and continue care , advance diet, advance activity Renal mass, left Acute Stable, BMP ok, creat is normal. Path pending Plan: continue care,Lower H and H consider tx blood yet stable and good UO 04/11/18 12:45 Subjective: better, passing gas, abdominal pain noted Objective: Vital Signs Temp Pulse Resp BP Pulse Ox 36.6 C 67 17 105/66 91 L 04/11/18 09:03 04/11/18 09:03 04/11/18 09:03 04/11/18 09:03 04/11/18 09:03 Laboratory Results 04/10/18 05:27 04/10/18 05:27 04/10/18 04/11/18 04/12/18 05:59 05:59 05:59 Intake Total 7 850 Output Total 2014 775 Balance -108 75 Physical Exam - Physical Exam General Appearance: alert Neck: supple Respiratory: No respiratory distress Cardiac/Chest: regular rate, rhythm Abdomen: soft Back: No CVA tenderness Skin: warm/dry Extremities: No calf tenderness, No Tammy's sign Neuro/Psych: alert, oriented x 3 ICD10 Worksheet Patient Problems: Problems Problem Status Onset Postoperative anemia due to acute blood loss Acute Renal mass, left Acute - ICD10 Problem Qualifiers (1) Postoperative anemia due to acute blood loss
[2018-04-11] MEDS ORDERED: SENNOSIDES/DOCUSATE SODIUM TAB PO PRN (12:48)
--- NOTE | 2018-04-11 14:02 | ASMTCMCOM ---
CM Note CM Note Notes: Met with patient and partner regarding discharge plan of care. We discussed the possibility of HHC upon discharge, patient and feel this is a good idea. It is unclear at this time if patient will d/c home with BERYL drain, also still receiving IV abx. Patient requested that CM move forward with home care referral and has chosen [facility] (RN/PT). Spoke with [place] at [facility] re: referral, hopefully has enough staff this week and plans on accepting at this time. Uncertain when patient will d/c at this time. CM will continue to follow and monitor IV abx needs. Plan: Home with [facility] (RN/PT) Date Signed: 04/11/2018 02:02 PM Electronically Signed By:Harriett Rankin RN
[2018-04-11] MEDS ORDERED: BISACODYL 10 MG SUPP PR PRN (14:21)
[2018-04-11] MEDS: FERROUS SULFATE 300 MG/5 ML UD CUP PO SCH (14:30)
[2018-04-11] MEDS: METHOCARBAMOL 750 MG TAB PO SCH ×2 (15:44→21:38)
--- NOTE | 2018-04-11 17:13 | HOSPPROG ---
Hospitalist Progress Note Assessment/Plan: Subjective Follow-up on acute blood loss anemia and constipation and left renal mass. No acute events overnight. No subjective fevers or chills. She states that she still has not had a bowel movement since coming into the hospital. But does knowledge she has not eaten a whole lot either. No complaints of shortness of breath or lightheadedness. Transfusion was considered few days ago but patient was declining transfusion of blood. I think if he was felt to be strongly recommended she would likely agreed to have a transfusion done but the current time we are following. Objective Vitals as detailed below Exam General-awake alert conversant no acute distress Heart-regular rate and rhythm no murmurs Lungs-Clear to auscultation with normal respiratory effort Abdomen-nondistended BERYL drain in place with the smaller amount of thin bloody discharge -no Toledo catheter in place Extremities-no significant pitting edema or calf pain with palpation Skin-no concerning skin rashes noted Labs as detailed below Assessment plan Acute blood loss anemia-her hemoglobin seems to be leveling off and clinically with less blood in her BERYL drain. Continue to follow and recheck again tomorrow morning. She is on iron supplementation. Left renal mass-patient is status post partial left nephrectomy. Pathology currently pending. Fever-the seemed to have abated. No obvious source identified. Possibly secondary to atelectasis or hematoma. Await final blood culture results. Urinalysis as well did not suggest infectious process. Chest x-ray was clear. I will hold ceftriaxone for now and monitor closely for any recurrent fevers. Constipation-continue bowel regimen. I added Dulcolax today. Magnesium citrate is ordered for as needed use as well. She is on scheduled MiraLax and Senokot. Wrqrvn-ha-wnopuj albuterol. Hypothyroidism-levothyroxine 75 mcg daily. Depression-continue fluvoxamine 100 mg daily. DVT prophylaxis-compression devices. Disposition-I would anticipate patient would be stable for discharge home once medically stable. We may want to involve PT and OT when cleared from bedrest. Objective: Vital Signs Temp Pulse Resp BP Pulse Ox 36.5 C 64 16 107/65 94 04/11/18 15:03 04/11/18 15:03 04/11/18 15:03 04/11/18 15:03 04/11/18 15:03 Laboratory Results 04/10/18 05:27 04/10/18 05:27 04/10/18 04/11/18 04/12/18 05:59 05:59 05:59 Intake Total 5013 202 4931 Output Total 2014 772 40 Balance -784 97 6150 ICD10 Worksheet Patient Problems: Problems Problem Status Onset Postoperative anemia due to acute blood loss Acute Renal mass, left Acute
[2018-04-11] MEDS: SENNOSIDES 1 TAB PO SCH (21:37)
[2018-04-11] MEDS: traZODone 50 MG TAB PO SCH (21:37)
[2018-04-12 04:48] LABS: PLATELET COUNT 166 10^3/uL (150-400)
[2018-04-12 09:13] VITALS: BP 103/64
[2018-04-12] MEDS: ACETAMINOPHEN 325 MG TAB PO PRN (09:25)
[2018-04-12] MEDS: LEVOTHYROXINE 75 MCG TAB PO SCH (09:26)
[2018-04-12] MEDS: METHOCARBAMOL 750 MG TAB PO SCH (09:26)
[2018-04-12] MEDS: FERROUS SULFATE 300 MG/5 ML UD CUP PO SCH (09:26)
[2018-04-12] MEDS: POLYETHYLENE GLYCOL 3350 17 GM PKT PO SCH (10:42)
[2018-04-12] MEDS ORDERED: DIPHENHYDRAMINE CREAM TP PRN (11:19)
--- NOTE | 2018-04-12 13:23 | HOSPPROG ---
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 path + for clear cell CA- Dr Alejandro to share w patient Objective: Vital Signs Temp Pulse Resp BP Pulse Ox 36.6 C 69 18 103/64 92 04/12/18 09:08 04/12/18 09:08 04/12/18 09:08 04/12/18 09:08 04/12/18 09:08 Laboratory Results 04/12/18 04:34 04/12/18 04:34 04/11/18 04/12/18 04/13/18 05:59 05:59 05:59 Intake Total 850 1460 Output Total 775 40 Balance 75 1420 - Physical Exam Constitutional: no apparent distress, appears nourished Eyes: PERRL, anicteric sclera Ears, Nose, Mouth, Throat: moist mucous membranes, hearing normal Cardiovascular: regular rate and rhythym, no murmur, rub, or gallop Respiratory: no respiratory distress, no rales or rhonchi Gastrointestinal: normoactive bowel sounds, soft, non-tender abdomen Genitourinary: no bladder fullness, No cummins in urethra Skin: warm, normal color Musculoskeletal: full muscle strength, no muscle tenderness Neurologic: AAOx3 ICD10 Worksheet Patient Problems: Problems Problem Status Onset Postoperative anemia due to acute blood loss Acute Renal mass, left Acute
--- NOTE | 2018-04-12 15:11 | ASMTLACE ---
ELICEO Length of stay for Answers: 4-6 days current admission Acuity / Level of Answers: Yes Care: Did the patient have an inpatient admission? Comorbidities - select Answers: Opioid dependence all that apply / Chronic pain Other Notes: Hypoactive thyroid; Billy al mass # of Emergency department Answers: 0 visits in the last 6 months Social determinants Answers: Mental health diagnosis (anxiety, depression, pers onality disorders, etc.) Score: 15 Date Signed: 04/12/2018 03:10 PM Electronically Signed By:Fide Davis
--- NOTE | 2018-04-12 15:15 | ASMTDCNOTE ---
Case Management Discharge Discharge Order Complete? Answers: Yes Patient to Obtain Answers: via Family Medications Transportation Arranged Answers: Family/Friends Faxed Final Orders Answers: Yes Agency/Facility Transfer Answers: Yes Report Printed & Faxed to Receiving Agency Family Notified Answers: Yes Discharge Comments Notes: Pt being D/Hemal home with [facility] nursing. HC notified. Pt is concerned that she won't be able to go up and down the stairs independently at home. There is a guest room on the first floor that she can use. Date Signed: 04/12/2018 03:14 PM Electronically Signed By:Fide Davis
--- NOTE | 2018-04-12 17:25 | SOAPPROG ---
SOAP Progress Note Assessment/Plan: Assessment: Postoperative anemia due to acute blood loss Acute POD # 5 BERYL out , advance diet, advance activity Renal mass, left Acute Stable, BMP ok, creat is normal. Path T1a Clear Cell Cancer Kidney Plan: DC home 04/12/18 17:23 Subjective: doing well Objective: Vital Signs Temp Pulse Resp BP Pulse Ox 36.6 C 69 18 103/64 92 04/12/18 09:08 04/12/18 09:08 04/12/18 09:08 04/12/18 09:08 04/12/18 09:08 Laboratory Results 04/12/18 04:34 04/12/18 04:34 04/11/18 04/12/18 04/13/18 05:59 05:59 05:59 Intake Total 850 1460 Output Total 775 40 Balance 75 1420 Physical Exam - Physical Exam General Appearance: alert Neck: supple Respiratory: No respiratory distress Cardiac/Chest: regular rate, rhythm Abdomen: soft Skin: warm/dry Extremities: No calf tenderness Neuro/Psych: alert, oriented x 3 ICD10 Worksheet Patient Problems: Problems Problem Status Onset Postoperative anemia due to acute blood loss Acute Renal mass, left Acute - ICD10 Problem Qualifiers (1) Postoperative anemia due to acute blood loss
--- NOTE | 2018-04-12 18:40 | PDIAF ---
- Diagnosis Diagnosis: renal mass Code Status: Full Code - Medication Management Discharge Medications: Medications to Continue on Transfer Levothyroxine [Synthroid 75 mcg (*)] 75 mcg PO DAILY06 03/29/18 [Last Taken 08:00] fluvoxaMINE MALEATE [Luvox 100 MG (*)] 100 mg PO DAILY 03/29/18 [Last Taken 07:30] Albuterol [Proventil Inhaler HFA (*)] 1 - 2 puffs IH DAILY PRN 03/30/18 [Last Taken Unknown] Herbals/Supplements -Info Only 1 ea PO DAILY 03/30/18 [Last Taken 04/05/18] Multivitamins [Multivitamin (*)] 1 each PO DAILY 04/07/18 [Last Taken Unknown] [place]-3 Fatty Acids [Fish Oil 1000 mg (*)] 1,000 mg PO DAILY 04/07/18 [Last Taken Unknown] diphenhydrAMINE [Benadryl Cream] 1 triston TP TID PRN 04/11/18 [Last Taken Unknown] Polyethylene Glycol 3350 [Miralax 17 gm (*)] 17 gm PO DAILY pkt 04/12/18 [Last Taken Unknown] Sennosides/Docusate Sodium [Senokot-S] 2 tab PO BID PRN tab 04/12/18 [Last Taken Unknown] oxyCODONE IR [Oxycodone Ir (*)] 5 mg PO Q6HRS PRN #15 tab 04/12/18 [Last Taken Unknown] traZODone [traZODONE 50MG (*)] 75 mg PO HS tab 04/12/18 [Last Taken Unknown] Discharge Medications: Refer to the Discharge Home Medication list for PRN reason. - Orders Services needed: Registered Nurse Diet Recommendation: no restrictions on diet Diet Texture: Regular Texture Diet Additional Instructions: No lifting greater than 20lbs until cleared by No hot tubs, swimming pools, or baths until cleared by Call office to set up follow up appointment for 1-2 weeks after discharge. Ok to shower. Wash incisions gently with soap and water, rinse well, pat dry. Do not touch you incisions with dirty hands or let anyone else touch them with dirty hands, keep clean clothes on, make sure bedding is clean. Do not allow animals to come into direct contact with incisions. Monitor for signs and symptoms of infection. Fever greater than 101F, pus draining from incisions, redness increasing. - Follow Up Care Current Providers and Referrals: Louie Brian MD [Medical Doctor] - (3 weeks) Kaylie Mesa MD [Primary Care Provider] -
== END 2018-04-12 17:56 | disposition home health service (06) | DRG 442 ==
LOC: INTOOBSV 08:53 → F3E 08:53 → F1N 14:19 → OBSVTOIN 17:48 → F2N 18:04 → F1N 04-10 12:22
PROVIDERS: ADMIT Specialist; ATTEND Specialist
PROC: 8E0W0CZ Robotic Assisted Procedure of Trunk Region, Open Approach (ICD-10-PCS; principal; 2018-04-07 10:15)
PROC: 0TB10ZX Excision of Left Kidney, Open Approach, Diagnostic (ICD-10-PCS; principal; 2018-04-07 10:15)
DX: C64.2 Malignant neoplasm of left kidney, except renal pelvis (principal); D62 Acute posthemorrhagic anemia; K59.00 Constipation, unspecified; F41.1 Generalized anxiety disorder; J45.909 Unspecified asthma, uncomplicated; G47.33 Obstructive sleep apnea (adult) (pediatric); E03.9 Hypothyroidism, unspecified; Z85.3 Personal history of malignant neoplasm of breast
CPT/HCPCS: 97116-GP; 97161-GP; 97530-GP; J0690; J0696; J1100; J1170; J1200; J2250; J2405; J2704; J2800; J3010; J7613

== ENCOUNTER 2018-04-20 14:48 | Emergency (ER) | payer MEDICAID ==
--- NOTE | 2018-04-20 15:18 | EDPHY ---
H & P Stated Complaint: fever, weakness Time Seen by Provider: 04/20/18 15:17 HPI/ROS: CHIEF COMPLAINT: Fever and weakness HISTORY OF PRESENT ILLNESS: The patient is referred to the emergency department by her urologist for evaluation of fever weakness. The patient is status post left nephrectomy on April 07. Her postoperative course was complicated by blood loss anemia. She did not require transfusion. The patient did develop some incisional redness and was started on Bactrim approximately 1 week ago. She reports that she has been experiencing low-grade fevers at home. She was evaluated by Dr. Brian and had a CT scan of the abdomen pelvis which demonstrated a likely hematoma. Dr. Brian did not feel as if this represented a complication from surgery. He felt he had nothing else to offer the patient according to his physician hotel assistant manager and refer the patient to the ED. REVIEW OF SYSTEMS: A comprehensive 10 point review of systems is otherwise negative aside from elements mentioned in the history of present illness. Source: Patient - Personal History Current Tetanus/Diphtheria Vaccine: Yes Current Tetanus Diphtheria and Acellular Pertussis (TDAP): Yes - Medical/Surgical History Hx Asthma: No Hx Chronic Respiratory Disease: No Hx Diabetes: No Hx Cardiac Disease: No Hx Renal Disease: No Hx Cirrhosis: No Hx Alcoholism: No Hx HIV/AIDS: No Hx Splenectomy or Spleen Trauma: No Other PMH: partial nephrectomy, hypothyroid, anxiety, lung nodules, - Social History Smoking Status: Never smoked - Physical Exam Exam: General Appearance: Alert, no distress Eyes: Pupils equal and round no pallor or injection ENT, Mouth: Mucous membranes moist Respiratory: There are no retractions, lungs are clear to auscultation Cardiovascular: Regular rate and rhythm Gastrointestinal: Abdomen is soft nontender, surgical incisions are clean dry and intact Neurological: 5/5 strength all 4 extremities Skin: Warm and dry, no rashes Musculoskeletal: Neck is supple nontender Extremities: symmetrical, full range of motion Constitutional: Initial Vital Signs Temperature (C) 37.6 C 04/20/18 14:57 Heart Rate 75 04/20/18 14:57 Respiratory Rate 16 04/20/18 14:57 Blood Pressure 92/49 L 04/20/18 14:57 O2 Sat (%) 99 04/20/18 14:57 O2 Delivery Mode Room Air Allergies/Adverse Reactions: wheat Allergy (Intermediate, Verified 04/20/18 14:54) BLOATING adhesive Allergy (Verified 04/20/18 14:54) RASH, HIVES ciprofloxacin Allergy (Verified 04/20/18 14:54) Rash COWS MILK Allergy (Intermediate, Uncoded 04/20/18 14:54) BLOATING GARLIC Allergy (Intermediate, Uncoded 04/20/18 14:54) STOMACH PAIN ONIONS Allergy (Intermediate, Uncoded 04/20/18 14:54) BURPS MOLDS Allergy (Mild, Uncoded 04/20/18 14:54) COUGH Augmentin Allergy (Unknown, Uncoded 04/20/18 14:54) Home Medications: Medication Instructions Recorded Levothyroxine [Synthroid 75 mcg 75 mcg PO DAILY06 03/29/18 (*)] fluvoxaMINE MALEATE [Luvox 100 MG 100 mg PO DAILY 03/29/18 (*)] Herbals/Supplements -Info Only 1 ea PO DAILY 03/30/18 Multivitamins [Multivitamin (*)] 1 each PO DAILY 04/07/18 [place]-3 Fatty Acids [Fish Oil 1000 1,000 mg PO DAILY 04/07/18 mg (*)] Sennosides/Docusate Sodium 2 tab PO BID PRN tab 04/12/18 [Senokot-S] oxyCODONE IR [Oxycodone Ir (*)] 5 mg PO Q6HRS PRN #15 tab 04/12/18 traZODone [traZODONE 50MG (*)] 75 mg PO HS tab 04/12/18 Bactrim DS 04/20/18 Medical Decision Making - Diagnostics Imaging Results: Imaging Impressions Abdomen/Pelvis CT 04/20/18 18:00 Impression: 1. 2 cm fluid collection superior to the left kidney containing punctate air, possibly representing a small hematoma or seroma, or less likely abscess. The air could be related to a prior drain, which has since been removed. 2. Multiple clips at the lateral margin of the left kidney compatible with recent partial nephrectomy. 4. Additional findings as above. Findings discussed with Louie Brian MD, 04/20/2018 at 14:22. Attention: This examination does not use radiographic contrast and provides only a limited evaluation of the abdomen, pelvis and retroperitoneum. If clinical concern warrants, CT with intravenous and enteric contrast could be performed. ED Course/Re-evaluation: The patient was referred to the emergency department for evaluation of general malaise and low-grade fevers. Patient is currently on Bactrim for a questionable mild incisional cellulitis. The patient is well-appearing in the emergency department. She has stable vital signs. Workup of her fever is unrevealing. There is no evidence of a significant urinary tract infection, pneumonia or clinical evidence of a significant postoperative infection. The results of the CT scan were reviewed by Dr. Brian who felt the findings were consistent with hematoma not abscess. At this point time the patient will be discharged home with instructions to follow up with Dr. Brian as scheduled. Differential Diagnosis: Differential diagnosis considered includes urinary tract infection, pneumonia, postoperative infection, ileus, intra-abdominal abscess, atelectasis, dehydration, worsening anemia - Data Points Laboratory Results: Laboratory Results 04/20/18 13:35 04/20/18 13:35 04/20/18 04/20/18 04/20/18 17:12 13:35 13:35 WBC 4.50 10^3/uL 10^3/uL (3.80-9.50) RBC 2.95 10^6/uL L 10^6/uL (4.18-5.33) Hgb 9.8 g/dL L g/dL (12.6-16.3) Hct 29.0 % L % (38.0-47.0) MCV 98.3 fL fL (81.5-99.8) MCH 33.2 pg pg (27.9-34.1) MCHC 33.8 g/dL g/dL (32.4-36.7) RDW 12.3 % % (11.5-15.2) Plt Count 434 10^3/uL H 10^3/uL (150-400) MPV 8.5 fL L fL (8.7-11.7) Neut % (Auto) 81.1 % H % (39.3-74.2) Lymph % (Auto) 3.8 % L % (15.0-45.0) [place] % (Auto) 7.6 % % (4.5-13.0) Eos % (Auto) 7.1 % % (0.6-7.6) Baso % (Auto) 0.0 % L % (0.3-1.7) Nucleat RBC Rel Count 0.0 % % (0.0-0.2) Absolute Neuts (auto) 3.65 10^3/uL 10^3/uL (1.70-6.50) Absolute Lymphs (auto) 0.17 10^3/uL L 10^3/uL (1.00-3.00) Absolute Monos (auto) 0.34 10^3/uL 10^3/uL (0.30-0.80) Absolute Eos (auto) 0.32 10^3/uL 10^3/uL (0.03-0.40) Absolute Basos (auto) 0.00 10^3/uL L 10^3/uL (0.02-0.10) Absolute Nucleated RBC 0.00 10^3/uL 10^3/uL (0-0.01) Immature Gran % 0.4 % % (0.0-1.1) Immature Gran # 0.02 10^3/uL 10^3/uL (0.00-0.10) RBC/WBC/PLT Morphology TNP Platelet Estimate TNP VBG Lactic Acid Sodium 136 mEq/L mEq/L (135-145) Potassium 4.4 mEq/L mEq/L (3.3-5.0) Chloride 101 mEq/L mEq/L (97-110) Carbon Dioxide 25 mEq/l mEq/l (22-31) Anion Gap 10 mEq/L mEq/L (8-16) BUN 24 mg/dL H mg/dL (7-23) Creatinine 1.1 mg/dL H mg/dL (0.6-1.0) Estimated GFR 51 Glucose 107 mg/dL H mg/dL (70-100) Calcium 8.9 mg/dL mg/dL (8.5-10.4) Urine Color YELLOW Urine Appearance CLEAR Urine pH 6.0 (5.0-7.5) Ur Specific [place] 1.021 (1.002-1.030) Urine Protein NEGATIVE (NEGATIVE) Urine Ketones NEGATIVE (NEGATIVE) Urine Blood NEGATIVE (NEGATIVE) Urine Nitrate NEGATIVE (NEGATIVE) Urine Bilirubin NEGATIVE (NEGATIVE) Urine Urobilinogen NEGATIVE EU EU (0.2-1.0) Ur Leukocyte Esterase NEGATIVE (NEGATIVE) Urine Glucose NEGATIVE (NEGATIVE) 04/20/18 13:35 WBC RBC Hgb Hct MCV MCH MCHC RDW Plt Count MPV Neut % (Auto) Lymph % (Auto) [place] % (Auto) Eos % (Auto) Baso % (Auto) Nucleat RBC Rel Count Absolute Neuts (auto) Absolute Lymphs (auto) Absolute Monos (auto) Absolute Eos (auto) Absolute Basos (auto) Absolute Nucleated RBC Immature Gran % Immature Gran # RBC/WBC/PLT Morphology Platelet Estimate VBG Lactic Acid 1.2 mmol/L mmol/L (0.7-2.1) Sodium Potassium Chloride Carbon Dioxide Anion Gap BUN Creatinine Estimated GFR Glucose Calcium Urine Color Urine Appearance Urine pH Ur Specific [place] Urine Protein Urine Ketones Urine Blood Urine Nitrate Urine Bilirubin Urine Urobilinogen Ur Leukocyte Esterase Urine Glucose Departure - Departure Disposition: Home, Routine, Self-Care Clinical Impression: Malaise Condition: Good Instructions: Fatigue (ED) Additional Instructions: 1. Please follow-up with your primary care provider for a recheck within the week. 2. Please follow up with Dr. Brian as scheduled. 3. Your workup in the emergency department demonstrates no significant abnormality, clinical evidence of infection or other worrisome finding. 4. Follow up with Dr. Robbins as scheduled on Wednesday Referrals: Kaylie Mesa MD [Primary Care Provider] - As per Instructions
[2018-04-20 15:50] LABS: PLATELET COUNT 434 10^3/uL (150-400)
[2018-04-20] MEDS ORDERED: ACETAMINOPHEN 325 MG TAB PO ONE (17:56)
[2018-04-20 18:16] VITALS: BP 98/51
== END 2018-04-20 18:16 | disposition home or self-care (01) ==
LOC: EDSTATUS 18:00
DX: R53.81 Other malaise (principal); R93.422 Abnormal radiologic findings on diagnostic imaging of left kidney; C64.9 Malignant neoplasm of unspecified kidney, except renal pelvis; Z90.5 Acquired absence of kidney; Z98.890 Other specified postprocedural states

== ENCOUNTER 2018-04-21 18:36 | Inpatient (IN) | payer MEDICAID ==
[2018-04-21] MEDS ORDERED: NS 1,000 ML IV ONE ×2 (19:26→21:06)
[2018-04-21] MEDS ORDERED: ACETAMINOPHEN 500 MG TAB ONE (20:11)
[2018-04-21] MEDS ORDERED: ACETAMINOPHEN 500 MG TAB PO ONE (20:12)
[2018-04-21 20:22] LABS: PLATELET COUNT 412 10^3/uL (150-400)
--- NOTE | 2018-04-21 20:22 | EDPHY ---
H & P Time Seen by Provider: 04/21/18 19:21 HPI/ROS: HPI Fever, nausea. 58-year-old female by private vehicle with her . This patient underwent a left-sided nephrectomy secondary to malignancy on April [address] Louie Brian. Surgery was complicated by blood loss and anemia. She did not require transfusion. Since shortly after the surgery she has had a low-grade temperature. This was thought to be secondary to a cellulitis around the area of her surgical incision left lower quadrant of her abdomen. She was placed on Bactrim for this. She presented to the emergency department yesterday complaining of fever. She had a CT scan of her abdomen and pelvis as part of her workup yesterday. This did show a small fluid collection adjacent to the left kidney. This was thought to be hematoma but may also represent an abscess. She was discharged home after an essentially unremarkable workup. Blood cultures are currently pending. She was to follow up with Dr. Brian. She returns to the emergency department with her today complaining of continued fever, fatigue and nausea. She has not been vomiting. ROS: Constitutional: No fever, no chills. As above. Eyes: No discharge. No changes in vision. ENT: No sore throat. No nasal congestion or rhinorrhea. Respiratory: No cough. No shortness of breath. Cardiac: No chest pain, no palpitations. Gastrointestinal: No abdominal pain, no vomiting, no diarrhea. As above Genitourinary: No hematuria. No dysuria or increased frequency with urination. Musculoskeletal: No back pain. No neck pain. No myalgias or arthralgias. Skin: No rashes. Neurological: No headache. No focal weakness or altered sensation. Past medical history: Partial nephrectomy, hypothyroid, anxiety, renal cancer, lung nodules. As above. Social history: Nonsmoker. No alcohol. Here with her . Physical Exam: General Appearance: Alert, no distress. This patient is responding to questions appropriately and in full sentences. This patient appears well- hydrated and well-nourished. Eyes: Pupils equal and round no pallor or injection. No lid edema, erythema or injection. ENT, Mouth: Mucous membranes are moist. The pharyngeal tissues are unremarkable. No edema or swelling. No asymmetry suggestive of abscess. No erythema or exudates. Respiratory: There are no retractions, lungs are clear to auscultation with good air movement bilaterally. Cardiovascular: Regular rate and rhythm. No murmur. Gastrointestinal: Abdomen is soft and nontender, she has an area of inflammation over the left lower quadrant surgical incision, this appears to be residual from her dressing being removed. It does not appear to be cellulitic. There is no crepitus or edema noted on palpation of this area. no masses, bowel sounds normal. No focal tenderness at McBurney's point. No Peters sign. Neurological: Motor sensory function is grossly intact. Cranial nerves are normal. Gait is normal. Skin: Warm and dry, no rashes. Musculoskeletal: Neck is supple and nontender. Extremities are symmetrical. All joints range without pain or impingement. Psychiatric: No agitation. No depression. Database: EKG: Imaging: Chest x-ray PA and lateral; the cardiac mediastinal silhouette is unremarkable. No evidence of infiltrate or pneumothorax. No acute cardiopulmonary disease process noted. Interpreted by me. Procedures: Emergency department course: Triage vital signs reviewed. She is febrile at 39.2. Blood pressure is 97/59. Vital signs otherwise normal. She was started on IV normal saline with 1-2 L to be given over the next hour. Chest x-ray to be obtained. Urine will be repeated as well as standard blood work. Medical records including CT scan report reviewed from yesterday. Concern is that 2 cm fluid collection superior to the left kidney is an abscess and not hematoma as initially thought. I discussed plan to admit the patient to our hospitalist service for further evaluation, consultation by Dr. Brian consultation by Infectious Disease. She and her are in agreement. 9:00 p.m., spoke with on-call hospitalist. Patient accepted for admission by Dr. Clifton. He will order a repeat CT scan of her abdomen and pelvis tomorrow to reassess fluid collection above left kidney. Hospitalist service will then involved Dr. Brian and Infectious Disease as needed for further management. Antibiotic administration discussed with Dr. Clifton will start the patient on 4.5 g of IV Zosyn in the emergency department. She will also be continued on IV normal saline at 100 cc/hour. 9:10 p.m., patient re-evaluated. Resting comfortably at this time. Plan for admission and above management discussed with her and her . All of their questions were answered. The patient was admitted in stable condition. Differential Diagnosis: The differential diagnosis on this patient includes but is not limited to postsurgical infection, intra-abdominal abscess, bacteremia, viral syndrome. This represents a partial list of diagnoses considered. These considerations are based on history, physical exam, past history, reassessment and diagnostic testing. Smoking Status: Never smoked Constitutional: Initial Vital Signs Temperature (C) 39.2 C H 04/21/18 18:39 Heart Rate 87 04/21/18 18:39 Respiratory Rate 18 04/21/18 18:39 Blood Pressure 97/59 L 04/21/18 18:39 O2 Sat (%) 97 04/21/18 18:39 O2 Delivery Mode Room Air Allergies/Adverse Reactions: wheat Allergy (Intermediate, Verified 04/21/18 18:42) BLOATING adhesive Allergy (Verified 04/21/18 18:42) RASH, HIVES ciprofloxacin Allergy (Verified 04/21/18 18:42) Rash COWS MILK Allergy (Intermediate, Uncoded 04/21/18 18:42) BLOATING GARLIC Allergy (Intermediate, Uncoded 04/21/18 18:42) STOMACH PAIN ONIONS Allergy (Intermediate, Uncoded 04/21/18 18:42) BURPS MOLDS Allergy (Mild, Uncoded 04/21/18 18:42) COUGH Augmentin Allergy (Unknown, Uncoded 04/21/18 18:42) Home Medications: Medication Instructions Recorded Levothyroxine [Synthroid 75 mcg 75 mcg PO DAILY06 03/29/18 (*)] fluvoxaMINE MALEATE [Luvox 100 MG 100 mg PO DAILY 03/29/18 (*)] Herbals/Supplements -Info Only 1 ea PO DAILY 03/30/18 Multivitamins [Multivitamin (*)] 1 each PO DAILY 04/07/18 [place]-3 Fatty Acids [Fish Oil 1000 1,000 mg PO DAILY 04/07/18 mg (*)] Sennosides/Docusate Sodium 2 tab PO BID PRN tab 04/12/18 [Senokot-S] oxyCODONE IR [Oxycodone Ir (*)] 5 mg PO Q6HRS PRN #15 tab 04/12/18 traZODone [traZODONE 50MG (*)] 75 mg PO HS tab 04/12/18 Bactrim DS 04/20/18 Medical Decision Making - Diagnostics Imaging Results: Imaging Impressions Chest X-Ray 04/21/18 19:31 Impression: No acute findings in the chest. - Data Points Laboratory Results: Laboratory Results 04/21/18 20:07 04/21/18 20:07 04/21/18 04/21/18 04/21/18 20:07 20:07 20:07 WBC 2.42 10^3/uL L 10^3/uL (3.80-9.50) RBC 3.01 10^6/uL L 10^6/uL (4.18-5.33) Hgb 10.0 g/dL L g/dL (12.6-16.3) Hct 29.0 % L % (38.0-47.0) MCV 96.3 fL fL (81.5-99.8) MCH 33.2 pg pg (27.9-34.1) MCHC 34.5 g/dL g/dL (32.4-36.7) RDW 12.3 % % (11.5-15.2) Plt Count 412 10^3/uL H 10^3/uL (150-400) MPV 8.6 fL L fL (8.7-11.7) Neut % (Auto) Not Reported Lymph % (Auto) Not Reported [place] % (Auto) Not Reported Eos % (Auto) Not Reported Baso % (Auto) Not Reported Nucleat RBC Rel Count Not Reported Absolute Neuts (auto) Not Reported Absolute Lymphs (auto) Not Reported Absolute Monos (auto) Not Reported Absolute Eos (auto) Not Reported Absolute Basos (auto) Not Reported Absolute Nucleated RBC Not Reported Immature Gran % Not Reported Seg Neutrophils % 83.0 % % Band Neutrophils % 0.0 % % Lymphocytes % 7.0 % % Monocytes % 1.0 % % Eosinophils % 8.0 % % Basophils % 1.0 % % Metamyelocytes % 0.0 % % Myelocytes % 0.0 % % Promyelocytes % 0.0 % % Blast Cells % 0.0 % % Immature Gran # Not Reported Absolute Seg Neuts 2.01 10^/uL 10^/uL (1.70-6.50) Absolute Band Neuts 0.00 10^3/uL 10^3/uL (0.00-0.70) Absolute Lymphocytes 0.17 10^3/uL L 10^3/uL (1.00-3.00) Absolute Monocytes 0.02 10^3/uL L 10^3/uL (0.30-0.80) Absolute Eosinophils 0.19 10^3/uL 10^3/uL (0.03-0.40) Absolute Basophils 0.02 10^3/uL 10^3/uL (0.02-0.10) Absolute Metamyelocyte 0.00 10^3/mL 10^3/mL (0.00-0.00) Absolute Myelocytes 0.00 10^3/mL 10^3/mL (0.00-0.00) Absolute Promyelocytes 0.00 10^3/uL 10^3/uL (0.00-0.00) Absolute Plasma Cells 0.00 10^3/uL 10^3/uL (0.00-0.00) Nucleated RBCs 1.0 /100 WBC H /100 WBC (0-0) Absolute Blast Cells 0.00 10^3/uL 10^3/uL (0.00-0.00) Plasma Cells % 0.0 % % Platelet Estimate ADEQUATE (ADEQ) Polychromasia 1+ H Microcytic Cells 1+ H VBG Lactic Acid 1.2 mmol/L mmol/L (0.7-2.1) Sodium 136 mEq/L mEq/L (135-145) Potassium 4.5 mEq/L mEq/L (3.3-5.0) Chloride 102 mEq/L mEq/L (97-110) Carbon Dioxide 22 mEq/l mEq/l (22-31) Anion Gap 12 mEq/L mEq/L (8-16) BUN 16 mg/dL mg/dL (7-23) Creatinine 1.0 mg/dL mg/dL (0.6-1.0) Estimated GFR 57 Glucose 101 mg/dL H mg/dL (70-100) Calcium 8.6 mg/dL mg/dL (8.5-10.4) Total Bilirubin 0.2 mg/dL mg/dL (0.1-1.4) AST 20 IU/L IU/L (14-46) ALT 27 IU/L IU/L (9-52) Alkaline Phosphatase 52 IU/L IU/L (38-126) Total Protein 6.1 g/dL L g/dL (6.3-8.2) Albumin 3.7 g/dL g/dL (3.5-5.0) Lipase 124 IU/L IU/L (23-300) Medications Given: Discontinued Medications Acetaminophen (Tylenol) 1,000 mg PO EDNOW ONE Stop: 04/21/18 20:13 Last Admin: 04/21/18 20:12 Dose: 1,000 mg Sodium Chloride (Ns) 1,000 mls @ 0 mls/hr IV EDNOW ONE; Wide Open PRN Reason: Protocol Stop: 04/21/18 19:27 Last Admin: 04/21/18 20:09 Dose: 1,000 mls Departure - Departure Disposition: [facility] Inpatient Acute Clinical Impression: Fever, Status post nephrectomy Referrals: Kaylie Mesa MD [Primary Care Provider] - As per Instructions
[2018-04-21] MEDS ORDERED: PIPERACILLIN/TAZO 4.5 GM/DEX 100 ML IV ONE (21:06)
[2018-04-21] MEDS ORDERED: ONDANSETRON 4 MG/2 ML VIAL IVP PRN (22:17)
[2018-04-21] MEDS ORDERED: ONDANSETRON DISINTEGRATING 4 MG TAB PO PRN (22:17)
[2018-04-21] MEDS ORDERED: IOPAMIDOL (ISOVUE-300) 100 ML BTL ONE (22:23)
[2018-04-21] MEDS ORDERED: oxyCODONE IR 5 MG TAB PO PRN (23:49)
--- NOTE | 2018-04-21 23:54 | PDGENHP ---
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 Patient underwent recent partial L nephrectomy for resection of malignancy. Over the last few days she has experienced severe fatigue and fever. She was seen in the ED yesterday but her work-up was mostly reassuring so she was discharged home. She has been on oral Bactrim for possible cellulitis at the site of her laparoscopic incisions. CT scan performed yesterday did show small fluid collection near site of nephrectomy but this was deemed to most likely represent a hematoma. After returning home yesterday her symptoms continued to progress. She describes pain all over, fevers, and severe weakness. She denies dysuria and frequency. She does feel some nasal congestion and mild sore throat. Her has had some nasal congestion over the last few days as well. Case discussed with Dr. Clifton, records reviewed in EMR. History Information - Allergies/Home Medication List Allergies/Adverse Reactions: wheat Allergy (Intermediate, Verified 04/21/18 18:42) BLOATING adhesive Allergy (Verified 04/21/18 18:42) RASH, HIVES ciprofloxacin Allergy (Verified 04/21/18 18:42) Rash COWS MILK Allergy (Intermediate, Uncoded 04/21/18 18:42) BLOATING GARLIC Allergy (Intermediate, Uncoded 04/21/18 18:42) STOMACH PAIN ONIONS Allergy (Intermediate, Uncoded 04/21/18 18:42) BURPS MOLDS Allergy (Mild, Uncoded 04/21/18 18:42) COUGH Augmentin Allergy (Unknown, Uncoded 04/21/18 18:42) Home Medications: Levothyroxine [Synthroid 75 mcg (*)] 75 mcg PO DAILY06 03/29/18 [Last Taken 01/31] fluvoxaMINE MALEATE [Luvox 100 MG (*)] 100 mg PO DAILY 03/29/18 [Last Taken 01/31] Herbals/Supplements -Info Only 1 ea PO DAILY 03/30/18 [Last Taken 04/05/18] Multivitamins [Multivitamin (*)] 1 each PO DAILY 04/07/18 [Last Taken Unknown] [place]-3 Fatty Acids [Fish Oil 1000 mg (*)] 1,000 mg PO DAILY 04/07/18 [Last Taken Unknown] Sulfamethox/Tmp 800/160 mg [Bactrim Ds] 1 tab PO BID 04/20/18 [Last Taken AM] Propylene Glycol/Peg 400 [Systane 0.3-0.4% Eye Drops] 1 drop OP DAILY PRN [Last Taken Unknown] I have personally reviewed and updated: family history, medical history - Past Medical History cancer Additional medical history: hypothyroidism, asthma, depression, L renal mass - Surgical History Additional surgical history: appendectomy, breast surgery, carpal tunnel release , knee and shoulder surgeries - Family History Additional family history: brother - renal cancer, other family members with heart disease and colon cancer - Social History Smoking Status: Never smoked Additional social history: lives with Review of Systems Review of Systems: ROS: 10pt was reviewed & negative except for what was stated in HPI & below Physical Exam Physical Exam: Temp Pulse Resp BP Pulse Ox 36.9 C 75 18 90/55 L 95 04/21/18 23:30 04/21/18 23:30 04/21/18 23:30 04/21/18 23:30 04/21/18 23:30 Constitutional: appears nourished, uncomfortable Eyes: PERRL, EOMI Ears, Nose, Mouth, Throat: moist mucous membranes, no oral mucosal ulcers Cardiovascular: regular rate and rhythym, no murmur, rub, or gallop Respiratory: no respiratory distress, clear to auscultation Gastrointestinal: normoactive bowel sounds, other (Laparoscopic incisions with mild erythema and skin irritation) Skin: warm, normal color Musculoskeletal: full muscle strength, no muscle tenderness Neurologic: AAOx3, CN II-XII Intact Psychiatric: interacting appropriately, not anxious Lab Data & Imaging Review 04/21/18 20:07 04/21/18 20:07 WBC 2.42 10^3/uL (3.80-9.50) L 04/21/18 20:07 RBC 3.01 10^6/uL (4.18-5.33) L 04/21/18 20:07 Hgb 10.0 g/dL (12.6-16.3) L 04/21/18 20:07 Hct 29.0 % (38.0-47.0) L 04/21/18 20:07 MCV 96.3 fL (81.5-99.8) 04/21/18 20:07 MCH 33.2 pg (27.9-34.1) 04/21/18 20:07 MCHC 34.5 g/dL (32.4-36.7) 04/21/18 20:07 RDW 12.3 % (11.5-15.2) 04/21/18 20:07 Plt Count 412 10^3/uL (150-400) H 04/21/18 20:07 MPV 8.6 fL (8.7-11.7) L 04/21/18 20:07 Neut % (Auto) Not Reported 04/21/18 20:07 Lymph % (Auto) Not Reported 04/21/18 20:07 Cole % (Auto) Not Reported 04/21/18 20:07 Eos % (Auto) Not Reported 04/21/18 20:07 Baso % (Auto) Not Reported 04/21/18 20:07 Nucleat RBC Rel Count Not Reported 04/21/18 20:07 Absolute Neuts (auto) Not Reported 04/21/18 20:07 Absolute Lymphs (auto) Not Reported 04/21/18 20:07 Absolute Monos (auto) Not Reported 04/21/18 20:07 Absolute Eos (auto) Not Reported 04/21/18 20:07 Absolute Basos (auto) Not Reported 04/21/18 20:07 Absolute Nucleated RBC Not Reported 04/21/18 20:07 Immature Gran % Not Reported 04/21/18 20:07 Seg Neutrophils % 83.0 % 04/21/18 20:07 Band Neutrophils % 0.0 % 04/21/18 20:07 Lymphocytes % 7.0 % 04/21/18 20:07 Monocytes % 1.0 % 04/21/18 20:07 Eosinophils % 8.0 % 04/21/18 20:07 Basophils % 1.0 % 04/21/18 20:07 Metamyelocytes % 0.0 % 04/21/18 20:07 Myelocytes % 0.0 % 04/21/18 20:07 Promyelocytes % 0.0 % 04/21/18 20:07 Blast Cells % 0.0 % 04/21/18 20:07 Immature Gran # Not Reported 04/21/18 20:07 Absolute Seg Neuts 2.01 10^/uL (1.70-6.50) 04/21/18 20:07 Absolute Band Neuts 0.00 10^3/uL (0.00-0.70) 04/21/18 20:07 Absolute Lymphocytes 0.17 10^3/uL (1.00-3.00) L 04/21/18 20:07 Absolute Monocytes 0.02 10^3/uL (0.30-0.80) L 04/21/18 20:07 Absolute Eosinophils 0.19 10^3/uL (0.03-0.40) 04/21/18 20:07 Absolute Basophils 0.02 10^3/uL (0.02-0.10) 04/21/18 20:07 Absolute Metamyelocyte 0.00 10^3/mL (0.00-0.00) 04/21/18 20:07 Absolute Myelocytes 0.00 10^3/mL (0.00-0.00) 04/21/18 20:07 Absolute Promyelocytes 0.00 10^3/uL (0.00-0.00) 04/21/18 20:07 Absolute Plasma Cells 0.00 10^3/uL (0.00-0.00) 04/21/18 20:07 Nucleated RBCs 1.0 /100 WBC (0-0) H 04/21/18 20:07 Absolute Blast Cells 0.00 10^3/uL (0.00-0.00) 04/21/18 20:07 Plasma Cells % 0.0 % 04/21/18 20:07 Platelet Estimate ADEQUATE (ADEQ) 04/21/18 20:07 Polychromasia 1+ H 04/21/18 20:07 Microcytic Cells 1+ H 04/21/18 20:07 VBG Lactic Acid 1.2 mmol/L (0.7-2.1) 04/21/18 20:07 Sodium 136 mEq/L (135-145) 04/21/18 20:07 Potassium 4.5 mEq/L (3.3-5.0) 04/21/18 20:07 Chloride 102 mEq/L (97-110) 04/21/18 20:07 Carbon Dioxide 22 mEq/l (22-31) 04/21/18 20:07 Anion Gap 12 mEq/L (8-16) 09/06/18 20:07 BUN 16 mg/dL (7-23) 04/21/18 20:07 Creatinine 1.0 mg/dL (0.6-1.0) 04/21/18 20:07 Estimated GFR 57 04/21/18 20:07 Glucose 101 mg/dL (70-100) H 04/21/18 20:07 Calcium 8.6 mg/dL (8.5-10.4) 04/21/18 20:07 Total Bilirubin 0.2 mg/dL (0.1-1.4) 04/21/18 20:07 AST 20 IU/L (14-46) 04/21/18 20:07 ALT 27 IU/L (9-52) 04/21/18 20:07 Alkaline Phosphatase 52 IU/L (38-126) 04/21/18 20:07 Total Protein 6.1 g/dL (6.3-8.2) L 04/21/18 20:07 Albumin 3.7 g/dL (3.5-5.0) 04/21/18 20:07 Lipase 124 IU/L (23-300) 04/21/18 20:07 Urine Color YELLOW 04/21/18 22:45 Urine Appearance CLEAR 04/21/18 22:45 Urine pH 5.0 (5.0-7.5) 04/21/18 22:45 Ur Specific Pedro 1.015 (1.002-1.030) 04/21/18 22:45 Urine Protein NEGATIVE (NEGATIVE) 04/21/18 22:45 Urine Ketones NEGATIVE (NEGATIVE) 04/21/18 22:45 Urine Blood NEGATIVE (NEGATIVE) 04/21/18 22:45 Urine Nitrate NEGATIVE (NEGATIVE) 04/21/18 22:45 Urine Bilirubin NEGATIVE (NEGATIVE) 04/21/18 22:45 Urine Urobilinogen NEGATIVE EU (0.2-1.0) 04/21/18 22:45 Ur Leukocyte Esterase NEGATIVE (NEGATIVE) 04/21/18 22:45 Urine RBC 1-3 /hpf (0-3) 04/21/18 22:45 Urine WBC 1-3 /hpf (0-3) 04/21/18 22:45 Ur Epithelial Cells TRACE /lpf (NONE-1+) 04/21/18 22:45 Urine Mucus TRACE /lpf (NONE-1+) 04/21/18 22:45 Urine Glucose NEGATIVE (NEGATIVE) 04/21/18 22:45 Imaging Review: Imaging Impressions Chest X-Ray 04/21/18 19:31 Impression: No acute findings in the chest. Assessment & Plan Assessment: 58 yo F w/ renal clear cell CA s/p recent partial nephrectomy presents with fever. Plan: 1. Fever - No real localizing symptoms as patient complains of all over body pain and fevers. Leukopenia could be a sign of worsening infection. CT scan performed yesterday revealed small fluid collection; the concern is that this may represent developing abscess. She does have some mild URI symptoms as well so could be viral infection. Lactate WNL; CXR without pneumonia (personally interpreted) and UA non-infectious. - Zosyn IV for possibility of intraabdominal abscess - Blood cultures pending - Will also check procalcitonin and respiratory PCR - Repeat CT scan ordered to eval for evolution of small fluid collection and need for possible drainage 2. Renal mass - S/p partial nephrectomy, path shows clear cell CA with clean margins. - Nephrectomy performed by Dr. Brian - Consult if drainage indicated pending imaging 3. Hypothyroid - Continue LTX Diet - NPO Code - Full Ppx - SCDs Dispo - Admit under inpatient status noting need for IV abx and further diagnostic testing
[2018-04-22] MEDS ORDERED: NS 1,000 ML IV ONE ×3 (00:17→07:45)
[2018-04-22] MEDS: traZODone 50 MG TAB PO PRN ×2 (00:33→22:57)
[2018-04-22] MEDS: PIPERACILLIN/TAZO 3.375 GM/DEX 50 ML IV SCH ×4 (02:40→20:02)
[2018-04-22] MEDS: LEVOTHYROXINE 75 MCG TAB PO SCH (05:13)
[2018-04-22] MEDS: ACETAMINOPHEN 325 MG TAB PO PRN ×2 (05:13→11:41)
[2018-04-22 06:43] LABS: PLATELET COUNT 281 10^3/uL (150-400)
[2018-04-22] MEDS ORDERED: VANCOMYCIN 750 MG in D5W 150 ML IV SCH (09:00)
[2018-04-22] MEDS: VANCOMYCIN 750 MG in D5W 150 ML IV SCH (10:06)
--- NOTE | 2018-04-22 13:20 | PDMN ---
Medical Necessity Medical necessity: Pt meets IP criteria per & MCG MG-SIC (Systemic or Infectious Condition); est los >2 mn for eval/tx of fever w/leukopenia & severe weakness s/p recent partial nephrectomy w/failed outpatient tx & concern for developing abscess; requiring further workup/monitoring, IV abx & IVFs; hx renal cancer; per H&P & order 04/21/18
--- NOTE | 2018-04-22 13:28 | HOSPPROG ---
Hospitalist Progress Note Assessment/Plan: 58 yo F w/ renal clear cell CA s/p recent partial nephrectomy presents with fever. Plan: 1. Fever/Hypotension- No real localizing symptoms as patient complains of all over body pain and fevers. Leukopenia could be a sign of worsening infection. CT scan performed on 04/20 revealed small fluid collection; the concern is that this may represent developing abscess. She does have some mild URI symptoms as well so could be viral infection. Lactate WNL; CXR without pneumonia ( personally interpreted) and UA non-infectious. - Zosyn IV for possibility of intraabdominal abscess - Blood cultures pending, NGTD on recent cultures from 04/20 - Procalcitonin mildly elevated to 0.21 and respiratory PCR negative on admission - Repeat CT scan ordered to eval for evolution of small fluid collection and need for possible drainage, patient currently refusing - Consulted Urology for reevaluation of small fluid collection on recent CT in setting of fever - BP remains low with MAP in 50-60s since admission, normal lactate on admission , s/p IVF with current maintenance fluids running - If signs of tissue hypoperfusion will consider additional IVF, aggressive treatment with central access and vasopressors 2. Renal mass - S/p partial nephrectomy, path shows clear cell CA with clean margins. - Nephrectomy performed by Dr. Brian - Consulted urology as above this AM 3. Hypothyroid - Continue LTX Diet - NPO Code - Full Ppx - SCDs Dispo - Pending clinical course Subjective: Patient reports no current fever/chills. Objective: Vital Signs Temp Pulse Resp BP Pulse Ox 37.3 C 61 15 89/59 L 97 04/22/18 11:56 04/22/18 11:56 04/22/18 11:56 04/22/18 11:56 04/22/18 11:56 Microbiology 04/22/18 00:41 Respiratory Panel (PCR) - Final Nasal, Sinus - Swab No Organism Detected Laboratory Results 04/22/18 05:30 04/22/18 05:30 04/21/18 04/22/18 04/23/18 05:59 05:59 05:59 Intake Total 3628 Output Total 1800 800 Balance 1828 -800 - Physical Exam Constitutional: no apparent distress Eyes: PERRL Ears, Nose, Mouth, Throat: moist mucous membranes Cardiovascular: regular rate and rhythym Respiratory: no respiratory distress Gastrointestinal: soft, non-tender abdomen Genitourinary: no bladder fullness Skin: warm, erythema Musculoskeletal: full muscle strength Neurologic: AAOx3 Psychiatric: interacting appropriately ICD10 Worksheet Patient Problems: Problems Problem Status Onset Fever Acute Status post nephrectomy Acute Postoperative anemia due to acute blood loss Acute Renal mass, left Acute
--- NOTE | 2018-04-22 14:10 | ASMTCMCOM ---
CM Note CM Note Notes: Pt admitted for fever. Pt had recent partial nepherectomy and there is possibility of developing abscess. Pt stated on IV ABX. Pt is current with [facility] RN. CM to follow for possible IV ABX need. Date Signed: 04/22/2018 02:09 PM Electronically Signed By:Jessica Campoverde LCSW
--- NOTE | 2018-04-22 15:02 | GCON ---
DATE OF CONSULTATION: 04/22/2018 REASON FOR CONSULT: Fever, abdominal pain. HISTORY OF PRESENT ILLNESS: This is a 58-year-old female, well known to our house, who had a recent partial nephrectomy by Dr. Brian that was positive for renal cell cancer. She has been having progre ssive weakness and fever, reporting a temperature of 102.4 and 5 at home the night before she came in the emergency room. Most of her workup has been negative. The only thing pertinent was a CT that s howed a small fluid collection at the site of the nephrectomy, which was assumed to be a likely hemat cecil. However, she re-presented to the emergency room with worsening symptoms and fever. ALLERGIES: Include wheat, adhesives, Cipro, cow's milk, garlic, onions, mold, and Augmentin. HOME MEDICATIONS: Levothyroxine, Luvox, herbs, multivitamin, omega-3, Bactrim, Systane eye drops. PAST MEDICAL HISTORY: Positive for renal cell cancer, hypothyroidism, asthma, depression. PAST SURGICAL HISTORY: Appendectomy, breast surgery, carpal tunnel release, knee and shoulder surger y. FAMILY HISTORY: Brother with renal cell cancer. SOCIAL HISTORY: Smoking: Never smoked. Additional social: Lives with . REVIEW OF SYSTEMS: A 10-point review of systems negative except as mentioned in HPI. PHYSICAL EXAM: Blood pressure 89/69, heart rate 61, respiratory rate 15, O2 97% on room air, tempera ture 37.3. LABS: White blood cell count is 1.74, hemoglobin 8, hematocrit 24.2, platelets 281. Lactic acid is 1.2. Chemistry: Sodium 138, potassium 4.4, chloride 114, carbon dioxide 20, anion gap 4, BUN 13, cr eatinine 0.9, glucose 92, calcium 7.3, prolactin 0.21. Urinalysis negative for blood, nitrites and l eukocytes. CT scan as mentioned on the abdomen and pelvis done 04/20/2018, showed a 2 cm left superior pole flui d collection, likely a hematoma, seroma, but possibly an abscess given patient's symptoms. ASSESSMENT AND PLAN: Fever, fluid collection, abdominal pain, general decompensation. The patient's case has been discussed with Dr. Brian who recommends Interventional Radiology drain the fluid above the patient's kidney, send it for culture and proceed medically as appropriate. /[id number]/MODL
[2018-04-22] MEDS: NS 1,000 ML IV SCH (20:01)
[2018-04-23] MEDS: ACETAMINOPHEN 325 MG TAB PO PRN (01:11)
[2018-04-23] MEDS ORDERED: SODIUM CL NASAL 45 ML BTL EACHNARE PRN (02:09)
[2018-04-23] MEDS: PIPERACILLIN/TAZO 3.375 GM/DEX 50 ML IV SCH ×2 (02:38→09:14)
[2018-04-23 04:49] LABS: PLATELET COUNT 273 10^3/uL (150-400)
[2018-04-23] MEDS: NS 1,000 ML IV SCH (06:40)
[2018-04-23] MEDS: LEVOTHYROXINE 75 MCG TAB PO SCH (06:42)
[2018-04-23] MEDS ORDERED: VSL#3 1 EACH CAP PO SCH (09:00)
--- NOTE | 2018-04-23 10:16 | HOSPPROG ---
Hospitalist Progress Note Assessment/Plan: 58 yo F w/ renal clear cell CA s/p recent partial nephrectomy presents with fever. Plan: 1. Fever/Hypotension - No real localizing symptoms as patient complains of all over body pain and fevers. Leukopenia could be a sign of worsening infection. - CT scan performed on 04/20 revealed small fluid collection; the concern is that this may represent developing abscess. - Lactate WNL; CXR without pneumonia (personally interpreted) and UA non- infectious. Procalcitonin mildly elevated to 0.21 and respiratory PCR negative on admission - Zosyn IV for possibility of intraabdominal abscess, Vancomycin added on 04/22 given repeat fevers - Blood cultures pending, NGTD on recent cultures from 04/20 - Repeat CT scan ordered to eval for evolution of small fluid collection and need for possible drainage, patient refusing - Consulted Urology on 04/22 for reevaluation of small fluid collection on recent CT in setting of fever, they recommended IR drainage and culture - IR consulted on 04/22 for fluid drainage however they reported they would be unable to access the collection - Consulting ID today given patient had repeat fever overnight, T Max 38.9, with continuing leukopenia and eosinophilic predominance - BP remains low with MAP in 50-60s since admission, normal lactate on admission and this morning, s/p IVF with current maintenance fluids running - If signs of tissue hypoperfusion will consider additional IVF, aggressive treatment with central access and vasopressors 2. Renal mass - S/p partial nephrectomy, path shows clear cell CA with clean margins. - Nephrectomy performed by Dr. Brian - Consulted urology as above 3. Hypothyroid - Continue LTX Diet - Regular Code - Full Ppx - SCDs Dispo - Pending clinical course Subjective: Patient reports feeling sleepy this morning as having not slept much overnight Objective: Vital Signs Temp Pulse Resp BP Pulse Ox 36.9 C 56 L 12 90/50 L 97 04/23/18 09:30 04/23/18 09:30 04/23/18 09:30 04/23/18 09:30 04/23/18 09:30 Microbiology 04/22/18 00:41 Respiratory Panel (PCR) - Final Nasal, Sinus - Swab No Organism Detected Laboratory Results 04/23/18 04:40 04/23/18 04:40 04/22/18 04/23/18 04/24/18 05:59 05:59 05:59 Intake Total 362 2250 1848 Output Total 1800 1800 1500 Balance 1828 450 348 - Physical Exam Constitutional: no apparent distress Ears, Nose, Mouth, Throat: hearing normal Cardiovascular: regular rate and rhythym Respiratory: no respiratory distress Gastrointestinal: soft, non-tender abdomen Genitourinary: no bladder tenderness Skin: warm Musculoskeletal: no muscle tenderness Neurologic: AAOx3 Psychiatric: interacting appropriately Lymph, Heme, Immunologic: No ecchymoses, No petechiae ICD10 Worksheet Patient Problems: Problems Problem Status Onset Fever Acute Status post nephrectomy Acute Postoperative anemia due to acute blood loss Acute Renal mass, left Acute
[2018-04-23] MEDS: VANCOMYCIN 750 MG in D5W 150 ML IV SCH ×2 (10:27→11:42)
[2018-04-23] MEDS: ENOXAPARIN 40 MG/0.4 ML SYR SC SCH (12:35)
--- NOTE | 2018-04-23 15:24 | GCON ---
PHYSICIAN REQUESTING CONSULTATION: Tom Olivera MD. REASON FOR CONSULTATION: Fever of unclear etiology. HPI: This is a 58-year-old woman whose current problems date back to left partial nephrectomy on 04/07/2018 showing clear cell renal cancer, who received perioperative cefazolin and this was a robotic procedure. Her course was complicated by bleed secondary to nicked renal vein. The patient did not receive blood due to personal preference. In addition, she had a fever postoperatively and received IV ceftriaxone from 04/08 to 04/11 with negative blood cultures from the and unclear source. The patient was eventually discharged on 04/12/2018, and was convalescing at home. She states that her main issue at home was a rash on her abdominal wall related to adhesive, which she treated with topical Benadryl, topical steroids and loratadine. She was seen by Urology several times to help manage this reaction. She also describes some swelling in this area. Postoperatively, she did have a BERYL drain that was removed prior to discharge. Starting about the , she developed chills and worsening weakness and subsequently developed fever to 101, and presented to the emergency room on the . Per Urology recommendation, the patient underwent a CT scan at that time that showed a very small perinephric fluid collection 2 x 1.7 with density most consistent with hematoma. This was personally reviewed by me. In addition, there was notable rich with some air adjacent to the rich consistent with Surgicel. The rest of the CT was reviewed without focus of infection. The patient at that time was discharged from the emergency room and went back home. Around this time was also started on Bactrim. Went home from the emergency room. Around this time, she was started on Bactrim. She continued to have a fever to 102 at home and on the returned to the emergency room and was admitted. At that time, she also had nausea. Blood cultures were obtained on the and the , which remained negative. She was started on standard dose Zosyn and vancomycin and describes overall her symptoms have remained unchanged. Notably though she has developed leukopenia with an ANC of 700 today and an increase in proportion of eosinophils up to 16.5%. Her rash on her abdominal wall is improved. The patient does describe some intermittent right-sided chest pain that is not pleuritic in nature that comes and goes. It is not made better by rubbing it. She denies shortness of breath or cough. She has a headache when she has fever. She has mild left-sided abdominal pain. She has had 1-2 loose stools that she relates to taking a tea that helps resolve constipation. She has had no bowel movement since admission to the hospital. Today, she also describes some mild eyelid swelling and left-sided nasal congestion. No itching. She denies dysuria, vaginal discharge. She has chronic knee pain that is not outside normal. No joint swelling. PAST MEDICAL HISTORY/SURGICAL HISTORY: She had an appendectomy at age 16 in [facility], hypothyroidism, asthma, breast surgery, depression, carpal tunnel release, knee and shoulder surgeries. FAMILY HISTORY: Her brother has colon cancer. SOCIAL HISTORY: Never smoked. She lives with her . She is a physicist , currently unemployed. She is originally from [facility]. ALL: Sulfa, Augmenti - both hives MEDS: Zosyn 3.375gm IV q6h and Vancomycin IV REVIEW OF SYSTEMS: A complete 10-point review of systems was performed and is negative except as mentioned in the HPI. PHYSICAL EXAM: VITAL SIGNS: T-max is 38.9 overnight, current 36.7. BP 102/66, HR 63, respiratory rate 16, saturation 98% on room air. GENERAL: This is a very healthy-appearing athletic woman in no respiratory distress, who is conversational and cheerful. She appears younger than her stated age. HEENT: She has pallor of her conjunctiva. No splinter hemorrhages. Pupils are reactive. Oropharynx: Good dentition. Moist mucous membranes. No oral ulcerations. NECK: Supple. No lymphadenopathy. CARDIOVASCULAR: She was bradycardic at the time of my exam. CHEST: She had bibasilar crackles consistent with atelectasis. Abdomen was thin. She had multiple well-healed surgical scars and a faint macular papular eruption focused around each of the incisions. There was no fluctuance at the incision or discharge. She had a soft abdomen that was nontender without peritoneal signs. Bowel sounds are present. She had no flank pain. No suprapubic pain. EXTREMITIES: No clubbing , cyanosis, or edema. No Homans sign. NEUROLOGIC: She was moving all 4 extremities equally. SKIN: As per abdominal exam. Otherwise, no rashes. She did have noticeable pallor. LABORATORY: Creatinine 1.0. LFTs are pending. Procalcitonin 0.21. LFTs from 2 days ago, AST 20, ALT 27, total protein 6.1, albumin 3.7, lipase 124. White count today is 2.4, hematocrit 24, platelets of 273, 28% neutrophils, 44% lymphocytes, 16% eosinophils, 10% monos. ANC is 70. Blood cultures are as per HPI. They were performed 04/08. Blood cultures were negative. She has a respiratory PCR that was negative on the . Blood cultures from the and are no growth to date. IMAGING: As per HPI. ASSESSMENT AND PLAN: A 58-year-old woman with recent robotic assisted left partial nephrectomy complicated by bleeding who has persistent anemia that is stable, who was admitted to the hospital for evaluation of fever. CT was personally reviewed by me and source of the fever is not overwhelmingly clear based on CT scan as a small fluid collection associated with the kidney does not appear consistent with abscess. Further, patient has had multiple sets of blood cultures that have been negative. Unfortunately, over the course of her treatment, she now appears to be developing a reaction to either Zosyn or vancomycin based on progressive neutropenia as well as eosinophilia. Also fever overnight could be related to rash. Further physical exam findings with her puffy eyelids could be related to this reaction. She denies any airway compromise at this time. She has no mucosal lesions that would suggest concern for Murray-Gal syndrome. 1. Postop fever of unclear etiology. 2. Drug reaction with eosinophilia and neutropenia. 3. HCV positive Ab without clear risk factors RECOMMENDATIONS: 1. Discontinue Zosyn and vancomycin and follow clinically due to lack of source of postoperative fever. Re-check LFTs. 2. Monitor fever curve and labs and consider additional imaging such to rule out pulmonary embolus with the patient's right-sided chest pain IF fever continues. 3. The patient with a hep C antibody test. Would recommend a viral load and hepatitis B serologies. 4. Clinical exam consistent with atelectasis. Would recommend resuming incentive spirometer. The patient was not using this at home either, which could be a potential source of her fever, although a fever to 102 is more than typically what I would expect from atelectasis. Time was 80 minutes with greater than 50% of time spent with education and counseling of the patient and regarding current clinical findings including unclear source of her fever postoperatively and now drug reaction. Coordination of care with Dr. Olivera. /[id number]/MODL TOMER
[2018-04-23] MEDS ORDERED: DIPHENHYDRAMINE CREAM TP PRN (17:35)
[2018-04-23] MEDS ORDERED: diphenhydrAMINE 25 MG CAP PO PRN (17:35)
[2018-04-23] MEDS: traZODone 50 MG TAB PO PRN (21:52)
[2018-04-24 04:59] LABS: PLATELET COUNT 259 10^3/uL (150-400)
--- NOTE | 2018-04-24 10:15 | PDDCSUM ---
Discharge Summary Discharge Summary: Date of Admission: 04/21/2018 Date of Discharge: 04/24/2018 Consults: Infectious Disease Followup: With PCP within next week to discuss hospitalization and hepatitis labs Hospital Course Problem List: 58 yo F w/ renal clear cell CA s/p recent partial nephrectomy who presented with fever. Plan: 1. Fever - No real localizing symptoms as patient complains of all over body pain and fevers. Leukopenia could be a sign of worsening infection. - CT scan performed on 04/20 revealed small fluid collection; the concern is that this may represent developing abscess. - Lactate WNL; CXR without pneumonia (personally interpreted) and UA non- infectious. Procalcitonin mildly elevated to 0.21 and respiratory PCR negative on admission - Zosyn IV was started for possibility of intraabdominal abscess, Vancomycin added on 04/22 given repeat fevers - Blood cultures with NGTD on this admission and recent cultures from 04/20 - Repeat CT scan ordered to eval for evolution of small fluid collection and need for possible drainage but patient refused - Consulted Urology on 04/22 for reevaluation of small fluid collection on recent CT in setting of fever, they recommended IR drainage and culture - IR consulted on 04/22 for fluid drainage however they reported they would be unable to access the collection - Consulted ID who recommended discontinuing abx, checking Hepatitis serologies , following fever curve - Patient has had no fevers since d/c of abx, WBC continues to recover 2. Renal mass - S/p partial nephrectomy, path shows clear cell CA with clean margins. - Nephrectomy performed by Dr. Brian - Consulted urology as above 3. Hypothyroid - Continue LTX Time spent on discharge was >35 minutes with >50% of time spent on patient counseling and education
[2018-04-24] MEDS: ENOXAPARIN 40 MG/0.4 ML SYR SC SCH (10:21)
[2018-04-24] MEDS: LEVOTHYROXINE 75 MCG TAB PO SCH (10:21)
--- NOTE | 2018-04-24 11:48 | ASMTLACE ---
LACE Length of stay for Answers: 2 days current admission Acuity / Level of Answers: Yes Care: Did the patient have an inpatient admission? Comorbidities - select Answers: Any tumor (including all that apply lymphoma or leukemia) Opioid dependence / Chronic pain Other Notes: Hypothyroid # of Emergency department Answers: 1-2 visits in the last 6 months Social determinants Answers: Mental health diagnosis (anxiety, depression, pers onality disorders, etc.) Lack of community resources and/or lack of social support (no pcp, lives alone, transportation, sandeep d) Score: 20 Date Signed: 04/24/2018 11:47 AM Electronically Signed By:Janelle Small RN
--- NOTE | 2018-04-24 11:55 | ASMTCMCOM ---
CM Note CM Note Notes: Met with patient to review dc plan of care. She was provided with resources for local food pantries and we discussed her anxiety and need for mental health follow up.She is referred to call [facility] back as she has seen them in the past. She is disparaged by the delay in appointment time. She states she has anxiety regarding potential employment. She also has a brother undergoing cancer treatments. She was given an additional packet from the ER window caser that provides more resources. [facility] called to notify them of patient's return to home. Plan: Home with family support and resumption of HHC. Date Signed: 04/24/2018 11:55 AM Electronically Signed By:Janelle Small RN
[2018-04-24 12:16] VITALS: BP 107/75
[2018-04-25 06:32] LABS: HEPATITIS B CORE AB TOTAL NEGATIVE (NEGATIVE); HEPATITIS B SURFACE ANTIGEN NEGATIVE (NEGATIVE)
--- NOTE | 2018-04-25 09:23 | ASDISCHSUM ---
Discharge Information Plan Status:Home with Home Health Medically Cleared to Leave:04/24/2018 Discharge Date:04/24/2018 02:57 PM D/C Disposition:Home Health Service [facility] D/C Disposition:Home, Routine, Self-Care Projected Discharge Date:04/24/2018 11:00 AM Transportation at D/C:Family Discharge Delay Reason: Follow-Up Date:04/24/2018 11:00 AM Discharge Slot: Final Diagnosis: Placement Information Referral Type:*Home Health Care Services Referral ID:[id number] Provider Name:[facility] Address [address] Address 2: City:[place] Selection Factors: State:[place] Patient Contact Information Contact Name:KEO Relationship: Address:[address] [place] [address] City:[place] Alternate Phone: State/Zip Code:[place] [address] Email: Financial Information Financial Class:Medicaid Primary Plan Desc:[place] Primary Plan Number:[id number] Secondary Plan Desc: Secondary Plan Number: Assessment Information LACE LACE Length of stay for Answers: 2 days current admission Acuity / Level of Answers: Yes Care: Did the patient have an inpatient admission? Comorbidities - select Answers: Any tumor (including all that apply lymphoma or leukemia) Opioid dependence / Chronic pain Other Notes: Hypothyroid # of Emergency department Answers: 1-2 visits in the last 6 months Social determinants Answers: Mental health diagnosis (anxiety, depression, pers onality disorders, etc.) Lack of community resources and/or lack of social support (no pcp, lives alone, transportation, sandeep d) Score: 20 Date Signed: 04/24/2018 11:47 AM Electronically Signed By:Janelle Small RN [facility] CM Progress Note CM Note CM Note Notes: Pt admitted for fever. Pt had recent partial nepherectomy and there is possibility of developing abscess. Pt stated on IV ABX. Pt is current with [facility] to follow for possible IV ABX need. Date Signed: 04/22/2018 02:09 PM Electronically Signed By:Jessica Campoverde LCSW [facility] Progress Note CM Note CM Note Notes: Met with patient to review dc plan of care. She was provided with resources for local food pantries and we discussed her anxiety and need for mental health follow up.She is referred to call [facility] back as she has seen them in the past. She is disparaged by the delay in appointment time. She states she has anxiety regarding potential employment. She also has a brother undergoing cancer treatments. She was given an additional packet from the ER case supervisor that provides more resources. [facility] called to notify them of patient's return to home. Plan: Home with family support and resumption of [facility]. Date Signed: 04/24/2018 11:55 AM Electronically Signed By:Janelle Small RN Intervention Information
[2018-04-28 11:40] LABS: HCV QT RNA PCR < 1 IU/mL (<10)
== END 2018-04-24 14:57 | disposition home or self-care (01) | DRG 248 ==
LOC: F1N 23:27
PROVIDERS: ADMIT Family Medicine; ATTEND Family Medicine
DX: K65.1 Peritoneal abscess (principal); C64.2 Malignant neoplasm of left kidney, except renal pelvis; E86.9 Volume depletion, unspecified; E03.9 Hypothyroidism, unspecified; D70.2 Other drug-induced agranulocytosis; T36.0X5A Adverse effect of penicillins, initial encounter; T36.8X5A Adverse effect of other systemic antibiotics, initial encounter; Z90.5 Acquired absence of kidney; Z80.0 Family history of malignant neoplasm of digestive organs
CPT/HCPCS: 86704-90; 96365; J1650; J2405; J2543; J3370; Q9967

== ENCOUNTER → 2018-08-23 | Outpatient (CLI) | payer MEDICAID | LOC: FIMAGING 16:12 | PROVIDERS: ATTEND Internal Medicine Hematology & Oncology | DX: Z12.31 Encounter for screening mammogram for malignant neoplasm of breast (principal); Z85.3 Personal history of malignant neoplasm of breast ==